=== PATIENT | female | born 1960 ===

== ENCOUNTER 2024-06-24 17:38 | Inpatient (IN) | payer MEDICAID ==
[~2024-06-24] VITALS: Ht 167.6 cm; Wt 89.4 kg
[2024-06-24] MEDS ORDERED: CEFTRIAXONE /D5W 50ML IVPB **ER PYXIS IV ONE (18:54)
[2024-06-24] MEDS ORDERED: VANCOMYCIN IV 200 ML ONE (18:55)
[2024-06-24] MEDS: CEFTRIAXONE 2 G in IV DEXTROSE 5% 100 ML IV ONE (19:05)
[2024-06-24] MEDS: IV NORMAL SALINE 1000 ML BAG IV ONE (19:05)
[2024-06-24 19:27] LABS: BASOPHILS % (AUTO) 0.3 % (0.0-2.0); EOSINOPHILS # (AUTO) 0.1 K/uL (0.0-0.7); EOSINOPHILS % (AUTO) 0.6 % (0.0-7.0); HEMATOCRIT 36.2 % (31.2-41.9); HEMOGLOBIN 11.9 g/dL (10.9-14.3); LYMPHOCYTES # (AUTO) 1.4 K/uL (0.8-4.8); LYMPHOCYTES % (AUTO) 10.8 % (20.5-51.5); MEAN CORPUSCULAR HEMOGLOBIN 28.2 uug (24.7-32.8); MEAN CORPUSCULAR HGB CONC 33 g/dL (32.3-35.6); MONOCYTES # (AUTO) 1.4 K/uL (0.1-1.30); MONOCYTES % (AUTO) 10.8 % (0.0-11.0); NEUTROPHILS # (AUTO) 10.1 K/uL (1.8-8.9); NEUTROPHILS % (AUTO) 77.5 % (38.5-71.5); PLATELET COUNT (AUTO) 157 K/uL (179-408); RED BLOOD CELL COUNT(AUTO) 4.21 MIL/uL (3.63-4.92); RED CELL DISTRIBUTION WIDTH 19.6 % (12.3-17.7)
[2024-06-24 19:28] LABS: CALCIUM 7.5 mg/dL (8.5-10.1); CARBON DIOXIDE 21 mmol/L (21-32); CHLORIDE 107 mmol/L (98-107); CREATININE 1.8 mg/dL (0.6-1.3); GLUCOSE 138 mg/dL (74-106); POTASSIUM 3.8 mmol/L (3.5-5.1); SODIUM SERUM 142 mmol/L (136-145)
[2024-06-24 19:29] LABS: DIFFERENTIAL COMMENT 1
[2024-06-24 19:31] LABS: AMMONIA < 10 umol/L (11-32); ETHANOL < 3 MG/DL (0-10); UREA NITROGEN, BLOOD 111 mg/dL (7-18)
[2024-06-24 19:42] LABS: *BILIRUBIN,URIN NEGATIVE (NEGATIVE); *BLOOD, URINE NEGATIVE (NEGATIVE); *CLARITY,URINE CLEAR (CLEAR); *COLOR,URINE YELLOW (YELLOW); *KETONES,URINE NEGATIVE (NEGATIVE); *PROTEIN,URINE NEGATIVE (NEGATIVE); LEUKOCYTE ESTERASE ,URINE NEGATIVE (NEGATIVE); NITRITE, URINE NEGATIVE (NEGATIVE); PH,URINE 6.5 (5.0-8.0); UGLUCOSE NEGATIVE (NEGATIVE)
[2024-06-24 19:43] LABS: ACETAMINOPHEN < 2.0 ug/mL (10-30); ALANINE AMINOTRANSFERASE 23 U/L (14-59); ALKALINE PHOSPHATASE 45 U/L (50-136); ASPARTATE AMINOTRANSFERASE 42 U/L (15-37); BILIRUBIN,DIRECT 0.5 mg/dL (0.0-0.2); TOTAL PROTEIN, SERUM 5.8 g/dL (6.4-8.2)
[2024-06-24 19:57] LABS: *AMPHETAMINE, URINE NEGATIVE (NEGATIVE); *BARBITURATE, URINE NEGATIVE (NEGATIVE); *BENZODIAZEPINE, URINE NEGATIVE (NEGATIVE); *CANNABINOID, URINE POSITIVE (NEGATIVE); *COCCAINE, URINE NEGATIVE (NEGATIVE); *OPIATE, URINE NEGATIVE (NEGATIVE); *PHENCYCLIDINE SCREEN,URINE NEGATIVE (NEGATIVE); FENTANYL, URINE NEGATIVE (NEGATIVE)
[2024-06-24] MEDS: VANCOMYCIN IV 1,000 MG in IV DEXTROSE 5% 250 ML IV ONE (20:00)
[2024-06-24 20:20] LABS: RBC,URINE 0-3 /HPF (0-3); WBC,URINE 0-3 /HPF (0-3)
[2024-06-24 20:21] LABS: BACTERIA,URINE FEW /HPF (NONE SEEN); SQUAMOUS EPITHELIAL CELL,UR FEW /HPF (NONE SEEN)
[2024-06-24] MEDS ORDERED: MAGNESIUM HYDROXIDE 30 ML LIQUID UDC PO PRN (23:30)
[2024-06-24] MEDS ORDERED: ACETAMINOPHEN 325 MG TABLET PO PRN (23:30)
[2024-06-25] VITALS (8 sets, daily range): BP systolic 106–153; BP diastolic 70–80; TEMP 97.6–98.4; O2SAT 96–99
[2024-06-25] MEDS: ASPIRIN 81 MG TAB.CHEW PO ONE (00:30)
[2024-06-25] MEDS: IV D5 1/2 NS 1000 ML 1,000 ML IV PRN (04:26)
[2024-06-25 04:46] LABS: *BILIRUBIN,URIN NEGATIVE (NEGATIVE); *BLOOD, URINE 2+ (NEGATIVE); *CLARITY,URINE CLEAR (CLEAR); *COLOR,URINE YELLOW (YELLOW); *KETONES,URINE NEGATIVE (NEGATIVE); *PROTEIN,URINE NEGATIVE (NEGATIVE); *UROBILINOGEN,URINE 0.2 E.U./dl (NORMAL); LEUKOCYTE ESTERASE ,URINE NEGATIVE (NEGATIVE); NITRITE, URINE NEGATIVE (NEGATIVE); PH,URINE 5.5 (5.0-8.0); UGLUCOSE NEGATIVE (NEGATIVE)
[2024-06-25 04:57] LABS: *AMPHETAMINE, URINE NEGATIVE (NEGATIVE); *BARBITURATE, URINE NEGATIVE (NEGATIVE); *BENZODIAZEPINE, URINE NEGATIVE (NEGATIVE); *CANNABINOID, URINE NEGATIVE (NEGATIVE); *COCCAINE, URINE NEGATIVE (NEGATIVE); *OPIATE, URINE NEGATIVE (NEGATIVE); *PHENCYCLIDINE SCREEN,URINE NEGATIVE (NEGATIVE); FENTANYL, URINE NEGATIVE (NEGATIVE)
[2024-06-25 05:05] LABS: WBC,URINE 0-3 /HPF (0-3)
[2024-06-25 05:06] LABS: BACTERIA,URINE FEW /HPF (NONE SEEN); MUCUS,URINE FEW /LPF (0-FEW); SQUAMOUS EPITHELIAL CELL,UR FEW /HPF (NONE SEEN)
[2024-06-25 07:49] LABS: BASOPHILS % (AUTO) 0.1 % (0.0-2.0); EOSINOPHILS # (AUTO) 0.1 K/uL (0.0-0.7); EOSINOPHILS % (AUTO) 0.6 % (0.0-7.0); HEMATOCRIT 36.6 % (31.2-41.9); HEMOGLOBIN 12.1 g/dL (10.9-14.3); LYMPHOCYTES # (AUTO) 0.9 K/uL (0.8-4.8); LYMPHOCYTES % (AUTO) 7.1 % (20.5-51.5); MEAN CORPUSCULAR HEMOGLOBIN 28.4 uug (24.7-32.8); MEAN CORPUSCULAR HGB CONC 33 g/dL (32.3-35.6); MEAN CORPUSCULAR VOLUME 85.6 fL (75.5-95.3); MONOCYTES % (AUTO) 8.3 % (0.0-11.0); NEUTROPHILS # (AUTO) 10.6 K/uL (1.8-8.9); NEUTROPHILS % (AUTO) 83.9 % (38.5-71.5); PLATELET COUNT (AUTO) 168 K/uL (179-408); RED BLOOD CELL COUNT(AUTO) 4.28 MIL/uL (3.63-4.92); RED CELL DISTRIBUTION WIDTH 19.8 % (12.3-17.7); WHITE BLOOD COUNT (AUTO) 12.6 K/uL (3.8-11.8)
[2024-06-25 07:59] LABS: DIFFERENTIAL COMMENT 1
[2024-06-25 08:03] LABS: CALCIUM 8.2 mg/dL (8.5-10.1); CREATININE 1.4 mg/dL (0.6-1.3); MAGNESIUM 2.6 mg/dL (1.8-2.4); PHOSPHOROUS 3.4 mg/dL (2.5-4.9)
[2024-06-25 08:09] LABS: POTASSIUM 3.3 mmol/L (3.5-5.1)
[2024-06-25] MEDS: PANTOPRAZOLE SODIUM 40 MG VIAL IV SCH (08:53)
[2024-06-25] MEDS: CLOPIDOGREL 75 MG TABLET PO SCH (08:53)
[2024-06-25] MEDS ORDERED: CEFTRIAXONE 1 G in IV DEXTROSE 5% 50 ML IV SCH (09:00)
[2024-06-25] MEDS ORDERED: POTASSIUM CHLORIDE 20 MEQ TAB.PRT.SR PO ONE (09:30)
[2024-06-25 10:00] LABS: THYROID STIMULATING HORMONE 1.879 mIU/mL (0.358-3.740)
[2024-06-25] MEDS ORDERED: POTASSIUM CHLORIDE 50 ML IV SCH (10:00)
[2024-06-25] MEDS: MEDIHONEY= THERAHONEY 1.5 OZ TUBE TOP SCH (11:21)
[2024-06-25] MEDS: POTASSIUM CHLORIDE 50 ML IV SCH (11:21)
[2024-06-25] MEDS ORDERED: METF-440 PO (11:39)
[2024-06-25] MEDS ORDERED: RISP1TAB97 PO (11:39)
[2024-06-25] MEDS ORDERED: HYDR25TA4 PO (11:39)
[2024-06-25] MEDS ORDERED: ASPI81TA31 PO (11:39)
[2024-06-25] MEDS ORDERED: CARV6.252 PO (11:39)
[2024-06-25] MEDS ORDERED: AMLO-212 PO (11:39)
[2024-06-25] MEDS ORDERED: CLOP75TA15 PO (11:39)
[2024-06-25] MEDS ORDERED: ATOR40TA PO (11:39)
[2024-06-25] MEDS ORDERED: LOSA50TA39 PO (11:39)
[2024-06-25] MEDS ORDERED: CLOPIDOGREL 75 MG TABLET PO SCH (13:45)
[2024-06-25] MEDS ORDERED: ASPIRIN EC 81 MG TABLET.DR PO SCH (14:00)
[2024-06-25] MEDS: ASPIRIN EC 81 MG TABLET.DR PO SCH (14:00)
[2024-06-25] MEDS ORDERED: SWABABLE VALVE TRANSFER SET EA MC ONE (14:21)
[2024-06-25] MEDS ORDERED: IOHEXOL 350 100 ML INFUS..BTL ONE (14:21)
[2024-06-25] MEDS ORDERED: IV NORMAL SALINE 250 ML IV ONE (14:21)
[2024-06-25] MEDS: DEXAMETHASONE SOD PHOSPHATE 4 MG INJ IV SCH (16:45)
[2024-06-25] MEDS: ENOXAPARIN SODIUM 40 MG/0.4 ML DISP.SYRIN SQ SCH (16:48)
[2024-06-25] MEDS: CEFTRIAXONE 1 G in IV DEXTROSE 5% 50 ML IV SCH (17:55)
[2024-06-25] MEDS: REMDESIVIR (CHARGED) 200 MG in IV NORMAL SALINE 210 ML IV ONE (17:55)
[2024-06-25] MEDS ORDERED: ATORVASTATIN 40 MG TABLET PO SCH (21:00)
[2024-06-25] MEDS ORDERED: MUPIROCIN 2% OINT 22 GM TUBE ONE (21:44)
[2024-06-25] MEDS: MUPIROCIN 2% OINT 22 GM TUBE NS SCH (22:00)
[2024-06-26] VITALS (22 sets, daily range): BP systolic 105–145; BP diastolic 62–84; TEMP 96.4–98.4; O2SAT 96–100
[2024-06-26] MEDS ORDERED: MAGNESIUM HYDROXIDE 30 ML LIQUID UDC NG PRN (01:00)
[2024-06-26 07:38] LABS: BASOPHILS % (AUTO) 0.1 % (0.0-2.0); HEMATOCRIT 35.4 % (31.2-41.9); HEMOGLOBIN 11.9 g/dL (10.9-14.3); LYMPHOCYTES # (AUTO) 0.6 K/uL (0.8-4.8); MEAN CORPUSCULAR HEMOGLOBIN 28.7 uug (24.7-32.8); MEAN CORPUSCULAR HGB CONC 34 g/dL (32.3-35.6); MEAN CORPUSCULAR VOLUME 85.6 fL (75.5-95.3); MONOCYTES # (AUTO) 0.7 K/uL (0.1-1.30); MONOCYTES % (AUTO) 4.9 % (0.0-11.0); NEUTROPHILS # (AUTO) 13.6 K/uL (1.8-8.9); PLATELET COUNT (AUTO) 189 K/uL (179-408); RED BLOOD CELL COUNT(AUTO) 4.14 MIL/uL (3.63-4.92); RED CELL DISTRIBUTION WIDTH 20.8 % (12.3-17.7); WHITE BLOOD COUNT (AUTO) 14.9 K/uL (3.8-11.8)
[2024-06-26 07:43] LABS: DIFFERENTIAL COMMENT 1
[2024-06-26 08:01] LABS: ALBUMIN 1.9 g/dL (3.4-5.0); BILIRUBIN,TOTAL 0.4 mg/dL (0.2-1.0); CALCIUM 8.2 mg/dL (8.5-10.1); CREATININE 1.1 mg/dL (0.6-1.3); MAGNESIUM 2.2 mg/dL (1.8-2.4); PHOSPHOROUS 2.1 mg/dL (2.5-4.9); TOTAL PROTEIN, SERUM 6.2 g/dL (6.4-8.2); VANCOMYCIN,RANDOM 12.6 ug/mL (20.0-30.0)
[2024-06-26 08:15] LABS: POTASSIUM 2.7 mmol/L (3.5-5.1)
[2024-06-26] MEDS: CLOPIDOGREL 75 MG TABLET NG SCH (09:00)
[2024-06-26] MEDS ORDERED: SWABABLE VALVE TRANSFER SET EA MC ONE (09:30)
[2024-06-26] MEDS ORDERED: IOHEXOL 350 100 ML INFUS..BTL ONE (09:30)
[2024-06-26] MEDS ORDERED: IV NORMAL SALINE 250 ML IV ONE (09:31)
[2024-06-26] MEDS: VANCOMYCIN HCL 750 MG in IV DEXTROSE 5% 250 ML IV SCH (10:42)
[2024-06-26] MEDS: POTASSIUM CHLORIDE 50 ML IV SCH (12:14)
[2024-06-26 13:15] LABS: PRE ALBUMIN 17.2 MG/DL (18.0-35.7)
[2024-06-26] MEDS: POTASSIUM PHOSPHATE MM 15 MMOL in IV NORMAL SALINE 250 ML IV ONE (13:28)
[2024-06-26] MEDS: ENOXAPARIN SODIUM 40 MG/0.4 ML DISP.SYRIN SQ SCH (15:21)
[2024-06-26] MEDS: GLUCERNA 1.2 1000ML LIQUID GT PRN (15:46)
[2024-06-26] MEDS ORDERED: REMDESIVIR (CHARGED) 100 MG in IV NORMAL SALINE 100 ML IV SCH (18:00)
[2024-06-26] MEDS: ATORVASTATIN 40 MG TABLET NG SCH (21:55)
[2024-06-27] VITALS (9 sets, daily range): BP systolic 106–130; BP diastolic 69–76; TEMP 95.9–98; O2SAT 93–100
[2024-06-27 09:05] LABS: CALCIUM 8.4 mg/dL (8.5-10.1); CREATININE 1.1 mg/dL (0.6-1.3); POTASSIUM 4.5 mmol/L (3.5-5.1)
[2024-06-27] MEDS: ACETAMINOPHEN 650 MG/20.3 ML LIQUID UDC NG PRN (20:46)
[2024-06-28] VITALS (7 sets, daily range): BP systolic 113–123; BP diastolic 70–88; TEMP 97.3–98.7; O2SAT 93–100
[2024-06-28 01:06] LABS: PTH, INTACT 86 pg/mL (15-65)
[2024-06-28 07:04] LABS: BASOPHILS % (AUTO) 0.1 % (0.0-2.0); HEMOGLOBIN 12.2 g/dL (10.9-14.3); LYMPHOCYTES % (AUTO) 4.7 % (20.5-51.5); MEAN CORPUSCULAR HEMOGLOBIN 28.3 uug (24.7-32.8); MEAN CORPUSCULAR HGB CONC 33 g/dL (32.3-35.6); MEAN CORPUSCULAR VOLUME 85.6 fL (75.5-95.3); MONOCYTES # (AUTO) 0.9 K/uL (0.1-1.30); MONOCYTES % (AUTO) 4.5 % (0.0-11.0); NEUTROPHILS # (AUTO) 18.3 K/uL (1.8-8.9); NEUTROPHILS % (AUTO) 90.7 % (38.5-71.5); PLATELET COUNT (AUTO) 232 K/uL (179-408); RED BLOOD CELL COUNT(AUTO) 4.32 MIL/uL (3.63-4.92); RED CELL DISTRIBUTION WIDTH 22.3 % (12.3-17.7); WHITE BLOOD COUNT (AUTO) 20.2 K/uL (3.8-11.8)
[2024-06-28 07:14] LABS: DIFFERENTIAL COMMENT 1
[2024-06-28 07:24] LABS: CALCIUM 7.9 mg/dL (8.5-10.1); CREATININE 1.2 mg/dL (0.6-1.3); MAGNESIUM 1.7 mg/dL (1.8-2.4); PHOSPHOROUS 2.7 mg/dL (2.5-4.9); POTASSIUM 3.3 mmol/L (3.5-5.1)
[2024-06-28] MEDS: CARVEDILOL 3.125 MG TABLET PO SCH (11:07)
[2024-06-28] MEDS: MAGNESIUM OXIDE 400 MG TABLET NG ONE (12:46)
[2024-06-28] MEDS: POTASSIUM CHLORIDE 20 MEQ POWDER PACKET NG ONE (12:46)
[2024-06-28] MEDS ORDERED: DEXTROSE 50% 50 ML DISP.SYRIN IV PRN (19:00)
[2024-06-28] MEDS: BLOOD SUGAR DIAGNOSTIC 1 EACH STRIP VI SCH (22:09)
[2024-06-28] MEDS: INSULIN REGULAR, HUMAN 1000 UNIT/10 ML VIAL SQ PRN (22:27)
[2024-06-29] VITALS (7 sets, daily range): BP systolic 91–143; BP diastolic 56–83; TEMP 96.5–98.1; O2SAT 95–100
[2024-06-29] MEDS: ONDANSETRON 4 MG/2 ML VIAL IV PRN (05:32)
[2024-06-29 07:02] LABS: BASOPHILS # (AUTO) 0.1 K/UL (0.0-0.2); BASOPHILS % (AUTO) 0.3 % (0.0-2.0); EOSINOPHILS % (AUTO) 0.1 % (0.0-7.0); HEMATOCRIT 36.3 % (31.2-41.9); HEMOGLOBIN 12.2 g/dL (10.9-14.3); LYMPHOCYTES # (AUTO) 1.5 K/uL (0.8-4.8); LYMPHOCYTES % (AUTO) 5.5 % (20.5-51.5); MEAN CORPUSCULAR HEMOGLOBIN 28.7 uug (24.7-32.8); MEAN CORPUSCULAR HGB CONC 34 g/dL (32.3-35.6); MEAN CORPUSCULAR VOLUME 85.5 fL (75.5-95.3); MONOCYTES % (AUTO) 3.7 % (0.0-11.0); NEUTROPHILS # (AUTO) 24.5 K/uL (1.8-8.9); NEUTROPHILS % (AUTO) 90.4 % (38.5-71.5); PLATELET COUNT (AUTO) 228 K/uL (179-408); RED BLOOD CELL COUNT(AUTO) 4.25 MIL/uL (3.63-4.92); RED CELL DISTRIBUTION WIDTH 22.4 % (12.3-17.7); WHITE BLOOD COUNT (AUTO) 27.1 K/uL (3.8-11.8)
[2024-06-29 07:12] LABS: DIFFERENTIAL COMMENT 1
[2024-06-29 07:29] LABS: ALANINE AMINOTRANSFERASE 39 U/L (14-59); ALBUMIN 1.6 g/dL (3.4-5.0); ALKALINE PHOSPHATASE 101 U/L (50-136); ASPARTATE AMINOTRANSFERASE 41 U/L (15-37); BILIRUBIN,TOTAL 0.5 mg/dL (0.2-1.0); CALCIUM 8.3 mg/dL (8.5-10.1); CARBON DIOXIDE 19 mmol/L (21-32); CHLORIDE 103 mmol/L (98-107); CREATINE KINASE, TOTAL 303 U/L (26-192); CREATININE 1.2 mg/dL (0.6-1.3); GLUCOSE 110 mg/dL (74-106); MAGNESIUM 2.1 mg/dL (1.8-2.4); PHOSPHOROUS 2.9 mg/dL (2.5-4.9); SODIUM SERUM 134 mmol/L (136-145); TOTAL PROTEIN, SERUM 5.4 g/dL (6.4-8.2); UREA NITROGEN, BLOOD 52 mg/dL (7-18)
[2024-06-29 07:35] LABS: LIPASE > 375 U/L (16-77); VANCOMYCIN,RANDOM 30.8 ug/mL (20.0-30.0)
[2024-06-29 07:36] LABS: POTASSIUM 4.4 mmol/L (3.5-5.1)
[2024-06-29] MEDS: ARGININE/GLUTAMINE/CALCIUM BMB 1 EACH POWD.PACK NG SCH (09:48)
[2024-06-29 12:07] LABS: A/G RATIO 0.6 (0.7-1.7); ALBUMIN 2.1 g/dL (2.9-4.4); ALPHA-1-GLOBULIN 0.3 g/dL (0.0-0.4); ALPHA-2-GLOBULIN 1.3 g/dL (0.4-1.0); BETA GLOBULIN 1.1 g/dL (0.7-1.3); GAMMA GLOBULIN 0.7 g/dL (0.4-1.8); GLOBULIN, TOTAL 3.4 g/dL (2.2-3.9); M-SPIKE Not Observed g/dL (Not Observed); PROTEIN, TOTAL 5.5 g/dL (6.0-8.5)
[2024-06-29] MEDS: IV D5/ 0.9% NACL 1,000 ML IV PRN (20:53)
[2024-06-30 04:00] VITALS: BP 158/89; TEMP 98.3; O2SAT 95
[2024-06-30 04:11] VITALS: O2SAT 96
[2024-06-30 07:35] LABS: HEMATOCRIT 34.7 % (31.2-41.9); HEMOGLOBIN 11.6 g/dL (10.9-14.3); LYMPHOCYTES # (AUTO) 0.9 K/uL (0.8-4.8); LYMPHOCYTES % (AUTO) 3.9 % (20.5-51.5); MEAN CORPUSCULAR HEMOGLOBIN 28.4 uug (24.7-32.8); MEAN CORPUSCULAR HGB CONC 33 g/dL (32.3-35.6); MEAN CORPUSCULAR VOLUME 85.1 fL (75.5-95.3); MONOCYTES # (AUTO) 0.6 K/uL (0.1-1.30); MONOCYTES % (AUTO) 2.5 % (0.0-11.0); NEUTROPHILS # (AUTO) 20.6 K/uL (1.8-8.9); NEUTROPHILS % (AUTO) 93.6 % (38.5-71.5); PLATELET COUNT (AUTO) 248 K/uL (179-408); RED BLOOD CELL COUNT(AUTO) 4.07 MIL/uL (3.63-4.92); RED CELL DISTRIBUTION WIDTH 22.9 % (12.3-17.7)
[2024-06-30 07:48] LABS: VANCOMYCIN,RANDOM 26.5 ug/mL (20.0-30.0)
[2024-06-30 08:18] LABS: DIFFERENTIAL COMMENT 1
[2024-06-30 09:04] LABS: CALCIUM 8.8 mg/dL (8.5-10.1); CREATININE 1.2 mg/dL (0.6-1.3); MAGNESIUM 2.2 mg/dL (1.8-2.4); PHOSPHOROUS 3.3 mg/dL (2.5-4.9); POTASSIUM 4.5 mmol/L (3.5-5.1)
[2024-06-30 11:46] VITALS: BP 154/83; TEMP 97.8; O2SAT 98
[2024-06-30 14:04] VITALS: O2SAT 96
[2024-06-30 20:00] VITALS: BP 152/88; TEMP 97.9; O2SAT 97
[2024-07-01] VITALS (7 sets, daily range): BP systolic 138–160; BP diastolic 84–92; TEMP 97.7–98.4; O2SAT 95–99
[2024-07-01] MEDS ORDERED: PIPERACILLIN SODIUM/TAZOBACTAM 3.375 G in IV DEXTROSE 5% 50 ML IV SCH (07:15)
[2024-07-01] MEDS: PIPERACILLIN SODIUM/TAZOBACTAM 3.375 G in IV DEXTROSE 5% 100 ML IV SCH ×2 (09:00→16:24)
[2024-07-01 11:06] LABS: ALBUMIN 1.5 g/dL (3.4-5.0); BILIRUBIN,DIRECT 0.1 mg/dL (0.0-0.2); BILIRUBIN,TOTAL 0.4 mg/dL (0.2-1.0); TOTAL PROTEIN, SERUM 5.2 g/dL (6.4-8.2)
[2024-07-01 12:23] LABS: BASOPHILS % (AUTO) 0.1 % (0.0-2.0); DIFFERENTIAL COMMENT 0; HEMATOCRIT 31.7 % (31.2-41.9); HEMOGLOBIN 10.5 g/dL (10.9-14.3); LYMPHOCYTES # (AUTO) 0.7 K/uL (0.8-4.8); LYMPHOCYTES % (AUTO) 3.5 % (20.5-51.5); MEAN CORPUSCULAR HEMOGLOBIN 28.6 uug (24.7-32.8); MEAN CORPUSCULAR HGB CONC 33 g/dL (32.3-35.6); MEAN CORPUSCULAR VOLUME 86.5 fL (75.5-95.3); MONOCYTES # (AUTO) 0.4 K/uL (0.1-1.30); MONOCYTES % (AUTO) 2.3 % (0.0-11.0); NEUTROPHILS # (AUTO) 17.7 K/uL (1.8-8.9); NEUTROPHILS % (AUTO) 94.1 % (38.5-71.5); PLATELET COUNT (AUTO) 274 K/uL (179-408); RED BLOOD CELL COUNT(AUTO) 3.67 MIL/uL (3.63-4.92); RED CELL DISTRIBUTION WIDTH 23.7 % (12.3-17.7); WHITE BLOOD COUNT (AUTO) 18.8 K/uL (3.8-11.8)
[2024-07-02] VITALS (8 sets, daily range): BP systolic 100–155; BP diastolic 50–83; TEMP 94.4–98.4; O2SAT 98–100
[2024-07-02 13:05] LABS: BASOPHILS % (AUTO) 0.1 % (0.0-2.0); DIFFERENTIAL COMMENT 0; EOSINOPHILS % (AUTO) 0.3 % (0.0-7.0); HEMATOCRIT 33.2 % (31.2-41.9); HEMOGLOBIN 11.2 g/dL (10.9-14.3); LYMPHOCYTES # (AUTO) 1.3 K/uL (0.8-4.8); LYMPHOCYTES % (AUTO) 7.2 % (20.5-51.5); MEAN CORPUSCULAR HEMOGLOBIN 28.9 uug (24.7-32.8); MEAN CORPUSCULAR HGB CONC 34 g/dL (32.3-35.6); MEAN CORPUSCULAR VOLUME 85.9 fL (75.5-95.3); MONOCYTES # (AUTO) 0.8 K/uL (0.1-1.30); MONOCYTES % (AUTO) 4.8 % (0.0-11.0); NEUTROPHILS # (AUTO) 15.5 K/uL (1.8-8.9); NEUTROPHILS % (AUTO) 87.6 % (38.5-71.5); PLATELET COUNT (AUTO) 282 K/uL (179-408); RED BLOOD CELL COUNT(AUTO) 3.87 MIL/uL (3.63-4.92); RED CELL DISTRIBUTION WIDTH 23.5 % (12.3-17.7); WHITE BLOOD COUNT (AUTO) 17.7 K/uL (3.8-11.8)
[2024-07-02 13:15] LABS: ALBUMIN 1.5 g/dL (3.4-5.0); BILIRUBIN,DIRECT 0.2 mg/dL (0.0-0.2); BILIRUBIN,TOTAL 0.5 mg/dL (0.2-1.0); CALCIUM 8.4 mg/dL (8.5-10.1); MAGNESIUM 1.7 mg/dL (1.8-2.4); PHOSPHOROUS 2.3 mg/dL (2.5-4.9); POTASSIUM 3.7 mmol/L (3.5-5.1); TOTAL PROTEIN, SERUM 5.1 g/dL (6.4-8.2)
[2024-07-02 14:02] LABS: BAND % (MANUAL) 5 % (0-10); LYMPHOCYTES % (MANUAL) 6 % (20-40); METAMYELOCYTES % 2 % (0-1); MONOCYTES % (MANUAL) 5 % (2-10); NEUTROPHILS % (MANUAL) 82 % (42-75)
[2024-07-02 14:05] LABS: PLATELET ESTIMATE ADEQUATE
[2024-07-02 14:11] LABS: ANISOCYTOSIS 3+
[2024-07-02] MEDS: NEUTRA PHOS PACKET GT ONE (16:24)
[2024-07-03] VITALS (8 sets, daily range): BP systolic 102–145; BP diastolic 65–77; TEMP 95.4–98.4; O2SAT 98–100
[2024-07-03] MEDS: PANTOPRAZOLE ORAL SUSPENSION 40 MG SUSPDR.PKT GT SCH (08:32)
[2024-07-04] VITALS (7 sets, daily range): BP systolic 123–144; BP diastolic 66–72; TEMP 97.5–98.5; O2SAT 96–100
[2024-07-04 09:31] LABS: CALCIUM 8.1 mg/dL (8.5-10.1); CREATININE 0.8 mg/dL (0.6-1.3); PHOSPHOROUS 2.6 mg/dL (2.5-4.9); POTASSIUM 3.1 mmol/L (3.5-5.1)
[2024-07-04 09:34] LABS: AMYLASE 796 U/L (25-115)
[2024-07-04 09:47] LABS: LIPASE > 375 U/L (16-77)
[2024-07-04] MEDS: POTASSIUM CHLORIDE 20 MEQ POWDER PACKET GT ONE (12:57)
[2024-07-05] MEDS ORDERED: PIPERACILLIN SODIUM/TAZO 3.375 GM VIAL ONE (00:07)
[2024-07-05 05:48] VITALS: BP 126/67; TEMP 97.9; O2SAT 100
[2024-07-05 06:45] LABS: BASOPHILS % (AUTO) 0.2 % (0.0-2.0); EOSINOPHILS # (AUTO) 0.1 K/uL (0.0-0.7); EOSINOPHILS % (AUTO) 1.2 % (0.0-7.0); HEMATOCRIT 25.7 % (31.2-41.9); HEMOGLOBIN 8.9 g/dL (10.9-14.3); MEAN CORPUSCULAR HEMOGLOBIN 29.9 uug (24.7-32.8); MEAN CORPUSCULAR HGB CONC 35 g/dL (32.3-35.6); MEAN CORPUSCULAR VOLUME 86.3 fL (75.5-95.3); MONOCYTES # (AUTO) 0.5 K/uL (0.1-1.30); MONOCYTES % (AUTO) 3.9 % (0.0-11.0); NEUTROPHILS # (AUTO) 10.4 K/uL (1.8-8.9); NEUTROPHILS % (AUTO) 86.7 % (38.5-71.5); PLATELET COUNT (AUTO) 177 K/uL (179-408); RED BLOOD CELL COUNT(AUTO) 2.98 MIL/uL (3.63-4.92); RED CELL DISTRIBUTION WIDTH 23.4 % (12.3-17.7)
[2024-07-05 07:05] LABS: DIFFERENTIAL COMMENT 1
[2024-07-05 07:41] LABS: BILIRUBIN,TOTAL 0.5 mg/dL (0.2-1.0); CALCIUM 7.5 mg/dL (8.5-10.1); CREATININE 0.7 mg/dL (0.6-1.3); MAGNESIUM 1.2 mg/dL (1.8-2.4); POTASSIUM 3.3 mmol/L (3.5-5.1)
[2024-07-05 08:52] LABS: BAND % (MANUAL) 1 % (0-10); EOSINOPHILS % (MANUAL) 1 % (0-8); LYMPHOCYTES % (MANUAL) 7 % (20-40); MONOCYTES % (MANUAL) 4 % (2-10); NEUTROPHILS % (MANUAL) 86 % (42-75)
[2024-07-05 08:53] LABS: ANISOCYTOSIS 2+; PLATELET ESTIMATE DECREASED
[2024-07-05] MEDS: POTASSIUM PHOSPHATE MM 15 MMOL in IV NORMAL SALINE 250 ML IV ONE (09:09)
[2024-07-05] MEDS: MAGNESIUM SULFATE/D5W 100 ML IV SCH (09:09)
[2024-07-05] MEDS: ALBUMIN HUMAN 25% 100 ML IV ONE (09:57)
[2024-07-05] MEDS: FUROSEMIDE 20 MG/2 ML VIAL IV ONE (11:08)
[2024-07-05 11:15] VITALS: BP 139/80; TEMP 98.5; O2SAT 100
[2024-07-05] MEDS ORDERED: NEUTRA PHOS PACKET PO ONE (15:15)
[2024-07-05] MEDS: NEUTRA PHOS PACKET GT ONE (15:31)
[2024-07-05 15:47] VITALS: BP 143/81; TEMP 97.4; O2SAT 97
[2024-07-06 06:21] VITALS: BP 144/72; TEMP 98.2
[2024-07-06 06:56] LABS: BASOPHILS % (AUTO) 0.1 % (0.0-2.0); EOSINOPHILS # (AUTO) 0.2 K/uL (0.0-0.7); EOSINOPHILS % (AUTO) 1.7 % (0.0-7.0); HEMATOCRIT 25.6 % (31.2-41.9); HEMOGLOBIN 8.9 g/dL (10.9-14.3); LYMPHOCYTES # (AUTO) 1.1 K/uL (0.8-4.8); LYMPHOCYTES % (AUTO) 9.8 % (20.5-51.5); MEAN CORPUSCULAR HEMOGLOBIN 29.7 uug (24.7-32.8); MEAN CORPUSCULAR HGB CONC 35 g/dL (32.3-35.6); MEAN CORPUSCULAR VOLUME 85.4 fL (75.5-95.3); MONOCYTES # (AUTO) 0.5 K/uL (0.1-1.30); MONOCYTES % (AUTO) 4.6 % (0.0-11.0); NEUTROPHILS # (AUTO) 9.5 K/uL (1.8-8.9); NEUTROPHILS % (AUTO) 83.8 % (38.5-71.5); PLATELET COUNT (AUTO) 184 K/uL (179-408); WHITE BLOOD COUNT (AUTO) 11.3 K/uL (3.8-11.8)
[2024-07-06 07:18] LABS: BILIRUBIN,DIRECT 0.1 mg/dL (0.0-0.2); BILIRUBIN,TOTAL 0.7 mg/dL (0.2-1.0); CALCIUM 7.5 mg/dL (8.5-10.1); CREATININE 0.7 mg/dL (0.6-1.3); PHOSPHOROUS 2.6 mg/dL (2.5-4.9); POTASSIUM 3.1 mmol/L (3.5-5.1); TOTAL PROTEIN, SERUM 4.5 g/dL (6.4-8.2)
[2024-07-06 07:52] LABS: DIFFERENTIAL COMMENT 1
[2024-07-06 08:10] VITALS: BP 174/93; TEMP 97.7; O2SAT 97
[2024-07-06 08:33] LABS: ALBUMIN 1.4 g/dL (3.4-5.0)
[2024-07-06 09:00] VITALS: O2SAT 98
[2024-07-06 12:00] VITALS: BP 160/86; TEMP 98.7; O2SAT 97
[2024-07-06] MEDS: POTASSIUM CHLORIDE 20 MEQ TAB.PRT.SR PO ONE (13:52)
[2024-07-06] MEDS: GLUCERNA 1.2 1000ML LIQUID GT PRN (14:36)
[2024-07-06 16:00] VITALS: BP 145/82; TEMP 98.7; O2SAT 97
[2024-07-06 19:40] VITALS: BP 151/82; TEMP 97.8; O2SAT 93
[2024-07-07 05:57] VITALS: BP 136/84; TEMP 98.3; O2SAT 94
[2024-07-07 08:25] LABS: BASOPHILS # (AUTO) 0.1 K/UL (0.0-0.2); BASOPHILS % (AUTO) 0.4 % (0.0-2.0); EOSINOPHILS # (AUTO) 0.1 K/uL (0.0-0.7); EOSINOPHILS % (AUTO) 0.9 % (0.0-7.0); HEMATOCRIT 27.4 % (31.2-41.9); HEMOGLOBIN 9.2 g/dL (10.9-14.3); LYMPHOCYTES # (AUTO) 0.9 K/uL (0.8-4.8); LYMPHOCYTES % (AUTO) 6.2 % (20.5-51.5); MEAN CORPUSCULAR HEMOGLOBIN 28.9 uug (24.7-32.8); MEAN CORPUSCULAR HGB CONC 34 g/dL (32.3-35.6); MEAN CORPUSCULAR VOLUME 85.8 fL (75.5-95.3); MONOCYTES # (AUTO) 0.6 K/uL (0.1-1.30); MONOCYTES % (AUTO) 3.6 % (0.0-11.0); NEUTROPHILS # (AUTO) 13.6 K/uL (1.8-8.9); NEUTROPHILS % (AUTO) 88.9 % (38.5-71.5); PLATELET COUNT (AUTO) 166 K/uL (179-408); RED BLOOD CELL COUNT(AUTO) 3.19 MIL/uL (3.63-4.92); RED CELL DISTRIBUTION WIDTH 23.3 % (12.3-17.7); WHITE BLOOD COUNT (AUTO) 15.3 K/uL (3.8-11.8)
[2024-07-07 08:30] LABS: DIFFERENTIAL COMMENT 1
[2024-07-07 08:46] LABS: ALANINE AMINOTRANSFERASE 56 U/L (14-59); ALKALINE PHOSPHATASE 176 U/L (50-136); ASPARTATE AMINOTRANSFERASE 41 U/L (15-37); BILIRUBIN,TOTAL 0.3 mg/dL (0.2-1.0); CALCIUM 7.9 mg/dL (8.5-10.1); CARBON DIOXIDE 23 mmol/L (21-32); CHLORIDE 112 mmol/L (98-107); CREATININE 0.7 mg/dL (0.6-1.3); GLUCOSE 151 mg/dL (74-106); POTASSIUM 3.5 mmol/L (3.5-5.1); SODIUM SERUM 144 mmol/L (136-145); TOTAL PROTEIN, SERUM 4.5 g/dL (6.4-8.2); UREA NITROGEN, BLOOD 6 mg/dL (7-18)
[2024-07-07 08:49] LABS: ALBUMIN 1.3 g/dL (3.4-5.0)
[2024-07-07 09:54] LABS: MAGNESIUM 1.7 mg/dL (1.8-2.4); PHOSPHOROUS 1.9 mg/dL (2.5-4.9)
[2024-07-07 12:00] VITALS: BP 136/75; TEMP 98.4; O2SAT 98
[2024-07-07 16:00] VITALS: BP 133/77; TEMP 98.1; O2SAT 98
[2024-07-07] MEDS: NEUTRA PHOS PACKET GT ONE (17:37)
[2024-07-07 19:00] VITALS: BP 150/81; TEMP 97.9; O2SAT 96
[2024-07-07 20:50] VITALS: BP 140/77
[2024-07-07 22:30] LABS: LIPASE > 375 U/L (16-77)
[2024-07-08 06:00] VITALS: TEMP 98.1; O2SAT 95
[2024-07-08 06:44] LABS: BASOPHILS % (AUTO) 0.3 % (0.0-2.0); EOSINOPHILS # (AUTO) 0.1 K/uL (0.0-0.7); EOSINOPHILS % (AUTO) 0.9 % (0.0-7.0); HEMATOCRIT 27.9 % (31.2-41.9); HEMOGLOBIN 9.5 g/dL (10.9-14.3); LYMPHOCYTES # (AUTO) 0.9 K/uL (0.8-4.8); LYMPHOCYTES % (AUTO) 6.6 % (20.5-51.5); MEAN CORPUSCULAR HEMOGLOBIN 29.2 uug (24.7-32.8); MEAN CORPUSCULAR HGB CONC 34 g/dL (32.3-35.6); MEAN CORPUSCULAR VOLUME 85.5 fL (75.5-95.3); MONOCYTES # (AUTO) 0.8 K/uL (0.1-1.30); MONOCYTES % (AUTO) 5.6 % (0.0-11.0); NEUTROPHILS # (AUTO) 12.3 K/uL (1.8-8.9); NEUTROPHILS % (AUTO) 86.6 % (38.5-71.5); PLATELET COUNT (AUTO) 158 K/uL (179-408); RED BLOOD CELL COUNT(AUTO) 3.26 MIL/uL (3.63-4.92); RED CELL DISTRIBUTION WIDTH 23.1 % (12.3-17.7); WHITE BLOOD COUNT (AUTO) 14.2 K/uL (3.8-11.8)
[2024-07-08 07:03] VITALS: BP 122/80
[2024-07-08 07:11] LABS: BILIRUBIN,DIRECT 0.1 mg/dL (0.0-0.2); BILIRUBIN,TOTAL 0.4 mg/dL (0.2-1.0); CALCIUM 7.6 mg/dL (8.5-10.1); CREATININE 0.7 mg/dL (0.6-1.3); MAGNESIUM 1.5 mg/dL (1.8-2.4); PHOSPHOROUS 1.8 mg/dL (2.5-4.9); POTASSIUM 3.2 mmol/L (3.5-5.1); TOTAL PROTEIN, SERUM 4.7 g/dL (6.4-8.2)
[2024-07-08 07:13] LABS: ALBUMIN 1.3 g/dL (3.4-5.0); C-REACTIVE PROTEIN 9.11 mg/dL (0.00-0.30)
[2024-07-08] MEDS: POTASSIUM CHLORIDE 20 MEQ POWDER PACKET NG ONE (09:51)
[2024-07-08] MEDS: MAGNESIUM OXIDE 400 MG TABLET GT ONE (09:51)
[2024-07-08] MEDS ORDERED: POTASSIUM CHLORIDE 20 MEQ TAB.PRT.SR PO ONE (10:00)
[2024-07-08 11:30] VITALS: BP 121/76; TEMP 98.4; O2SAT 94
[2024-07-08] MEDS: REMEDY ESSENTIAL ZINC PASTE 113 GM TOP SCH (11:56)
[2024-07-08 15:04] VITALS: BP 159/84; TEMP 98.7; O2SAT 93
[2024-07-08] MEDS: NEUTRA PHOS PACKET PO ONE (16:30)
[2024-07-08] MEDS: IV LACTATED RINGERS SOLUTION 1,000 ML IV SCH (18:23)
[2024-07-08 19:57] VITALS: BP 127/77; TEMP 98.1; O2SAT 96
[2024-07-08 20:28] VITALS: O2SAT 94
[2024-07-09 05:44] VITALS: BP 133/78; TEMP 97.9; O2SAT 99
[2024-07-09 07:19] LABS: BASOPHILS % (AUTO) 0.4 % (0.0-2.0); EOSINOPHILS # (AUTO) 0.2 K/uL (0.0-0.7); EOSINOPHILS % (AUTO) 1.3 % (0.0-7.0); HEMATOCRIT 27.3 % (31.2-41.9); HEMOGLOBIN 9.4 g/dL (10.9-14.3); LYMPHOCYTES # (AUTO) 1.1 K/uL (0.8-4.8); LYMPHOCYTES % (AUTO) 8.6 % (20.5-51.5); MEAN CORPUSCULAR HEMOGLOBIN 29.4 uug (24.7-32.8); MEAN CORPUSCULAR HGB CONC 34 g/dL (32.3-35.6); MEAN CORPUSCULAR VOLUME 85.7 fL (75.5-95.3); MONOCYTES # (AUTO) 0.9 K/uL (0.1-1.30); MONOCYTES % (AUTO) 7.4 % (0.0-11.0); NEUTROPHILS # (AUTO) 10.2 K/uL (1.8-8.9); NEUTROPHILS % (AUTO) 82.3 % (38.5-71.5); PLATELET COUNT (AUTO) 145 K/uL (179-408); RED BLOOD CELL COUNT(AUTO) 3.19 MIL/uL (3.63-4.92); RED CELL DISTRIBUTION WIDTH 23.1 % (12.3-17.7); WHITE BLOOD COUNT (AUTO) 12.4 K/uL (3.8-11.8)
[2024-07-09 07:28] LABS: DIFFERENTIAL COMMENT 1
[2024-07-09 08:44] LABS: ALANINE AMINOTRANSFERASE 40 U/L (14-59); ALKALINE PHOSPHATASE 169 U/L (50-136); ASPARTATE AMINOTRANSFERASE 38 U/L (15-37); BILIRUBIN,DIRECT 0.1 mg/dL (0.0-0.2); BILIRUBIN,TOTAL 0.4 mg/dL (0.2-1.0); CALCIUM 7.7 mg/dL (8.5-10.1); CARBON DIOXIDE 25 mmol/L (21-32); CHLORIDE 110 mmol/L (98-107); CREATININE 0.6 mg/dL (0.6-1.3); GLUCOSE 114 mg/dL (74-106); POTASSIUM 3.2 mmol/L (3.5-5.1); SODIUM SERUM 142 mmol/L (136-145); TOTAL PROTEIN, SERUM 4.4 g/dL (6.4-8.2); UREA NITROGEN, BLOOD 17 mg/dL (7-18)
[2024-07-09 09:04] LABS: LIPASE > 375 U/L (16-77)
[2024-07-09 09:09] LABS: ALBUMIN 1.1 g/dL (3.4-5.0)
[2024-07-09] MEDS: MAGNESIUM SULFATE/D5W 100 ML IV SCH (09:24)
[2024-07-09 11:31] VITALS: BP 157/82; TEMP 97.8; O2SAT 99
[2024-07-09] MEDS ORDERED: TPN/PPN PER PHARMACY IV PRN (13:00)
[2024-07-09] MEDS: ALBUMIN HUMAN 25% 100 ML IV SCH (13:53)
[2024-07-09] MEDS: TPN BAG # 1 IV SCH (16:00)
[2024-07-09 16:56] VITALS: BP 155/74; TEMP 97.5; O2SAT 95
[2024-07-09 20:00] VITALS: BP 159/86; TEMP 98.1; O2SAT 96
[2024-07-10] VITALS (8 sets, daily range): BP systolic 166–178; BP diastolic 78–89; TEMP 97.3–98.2; O2SAT 82–97
[2024-07-10] MEDS ORDERED: ALBUMIN HUMAN 25% 50 ML ONE (01:44)
[2024-07-10] MEDS ORDERED: ALBUMIN HUMAN 25% 100 ML ONE (01:59)
[2024-07-10] MEDS: TPN IV SCH (05:09)
[2024-07-10 07:17] LABS: MAGNESIUM 1.8 mg/dL (1.8-2.4); PHOSPHOROUS 2.1 mg/dL (2.5-4.9)
[2024-07-10 07:27] LABS: ALBUMIN 2.8 g/dL (3.4-5.0); BILIRUBIN,TOTAL 0.8 mg/dL (0.2-1.0); CALCIUM 7.7 mg/dL (8.5-10.1); CREATININE 0.6 mg/dL (0.6-1.3); POTASSIUM 2.9 mmol/L (3.5-5.1)
[2024-07-10 09:12] LABS: BASOPHILS % (AUTO) 0.2 % (0.0-2.0); DIFFERENTIAL COMMENT 0; EOSINOPHILS # (AUTO) 0.1 K/uL (0.0-0.7); EOSINOPHILS % (AUTO) 1.1 % (0.0-7.0); LYMPHOCYTES # (AUTO) 0.9 K/uL (0.8-4.8); LYMPHOCYTES % (AUTO) 7.8 % (20.5-51.5); MEAN CORPUSCULAR HEMOGLOBIN 29.4 uug (24.7-32.8); MEAN CORPUSCULAR HGB CONC 34 g/dL (32.3-35.6); MEAN CORPUSCULAR VOLUME 85.8 fL (75.5-95.3); MONOCYTES # (AUTO) 0.9 K/uL (0.1-1.30); MONOCYTES % (AUTO) 7.9 % (0.0-11.0); NEUTROPHILS # (AUTO) 9.6 K/uL (1.8-8.9); PLATELET COUNT (AUTO) 131 K/uL (179-408); RED CELL DISTRIBUTION WIDTH 22.7 % (12.3-17.7); WHITE BLOOD COUNT (AUTO) 11.5 K/uL (3.8-11.8)
[2024-07-10 09:16] LABS: RED BLOOD CELL COUNT(AUTO) 2.32 MIL/uL (3.63-4.92)
[2024-07-10 09:18] LABS: HEMOGLOBIN 6.8 g/dL (10.9-14.3)
[2024-07-10 09:19] LABS: HEMATOCRIT 19.9 % (31.2-41.9)
[2024-07-10 11:53] LABS: EOSINOPHILS % (MANUAL) 1 % (0-8); LYMPHOCYTES % (MANUAL) 8 % (20-40); MONOCYTES % (MANUAL) 8 % (2-10); NEUTROPHILS % (MANUAL) 83 % (42-75); PLATELET ESTIMATE DECREASED
[2024-07-10] MEDS: POTASSIUM PHOSPHATE MM 15 MMOL in IV NORMAL SALINE 250 ML IV ONE (12:07)
[2024-07-10] MEDS: TPN BAG #3 IV SCH (15:26)
[2024-07-10 16:55] LABS: HEMOGLOBIN 7.9 g/dL (10.9-14.3)
[2024-07-10] MEDS: hydrALAZINE HCL 20 MG/1 ML VIAL IV PRN (21:18)
[2024-07-11] MEDS: TPN BAG #4 IV SCH (00:56)
[2024-07-11 05:36] VITALS: BP 158/80; TEMP 98; O2SAT 100
[2024-07-11 06:30] LABS: BASOPHILS % (AUTO) 0.4 % (0.0-2.0); EOSINOPHILS # (AUTO) 0.1 K/uL (0.0-0.7); EOSINOPHILS % (AUTO) 1.5 % (0.0-7.0); HEMOGLOBIN 8.5 g/dL (10.9-14.3); LYMPHOCYTES # (AUTO) 1.1 K/uL (0.8-4.8); LYMPHOCYTES % (AUTO) 11.6 % (20.5-51.5); MEAN CORPUSCULAR HEMOGLOBIN 30.9 uug (24.7-32.8); MEAN CORPUSCULAR HGB CONC 36 g/dL (32.3-35.6); MEAN CORPUSCULAR VOLUME 87.1 fL (75.5-95.3); MONOCYTES % (AUTO) 10.7 % (0.0-11.0); NEUTROPHILS # (AUTO) 7.1 K/uL (1.8-8.9); NEUTROPHILS % (AUTO) 75.8 % (38.5-71.5); PLATELET COUNT (AUTO) 125 K/uL (179-408); RED BLOOD CELL COUNT(AUTO) 2.75 MIL/uL (3.63-4.92); RED CELL DISTRIBUTION WIDTH 20.8 % (12.3-17.7); WHITE BLOOD COUNT (AUTO) 9.4 K/uL (3.8-11.8)
[2024-07-11 06:32] LABS: HEMATOCRIT 24.2 % (31.2-41.9); HEMOGLOBIN 8.5 g/dL (10.9-14.3)
[2024-07-11 07:07] LABS: ALBUMIN 2.4 g/dL (3.4-5.0); BILIRUBIN,TOTAL 0.9 mg/dL (0.2-1.0); CALCIUM 7.8 mg/dL (8.5-10.1); CREATININE 0.7 mg/dL (0.6-1.3); MAGNESIUM 1.8 mg/dL (1.8-2.4); PHOSPHOROUS 2.8 mg/dL (2.5-4.9); TOTAL PROTEIN, SERUM 4.9 g/dL (6.4-8.2)
[2024-07-11 07:14] LABS: POTASSIUM 2.8 mmol/L (3.5-5.1)
[2024-07-11 07:22] LABS: DIFFERENTIAL COMMENT 1
[2024-07-11] MEDS: POTASSIUM CHLORIDE 50 ML IV SCH (08:45)
[2024-07-11] MEDS: LOSARTAN POTASSIUM 25 MG TABLET PO SCH (08:45)
[2024-07-11 08:48] LABS: ANISOCYTOSIS 2+; BAND % (MANUAL) 1 % (0-10); LYMPHOCYTES % (MANUAL) 15 % (20-40); METAMYELOCYTES % 1 % (0-1); MONOCYTES % (MANUAL) 11 % (2-10); MYELOCYTES % 1 % (0-0); NEUTROPHILS % (MANUAL) 71 % (42-75); PLATELET ESTIMATE DECREASED
[2024-07-11] MEDS: TPN BAG #5 IV SCH (11:33)
[2024-07-11 11:55] VITALS: BP 189/92; TEMP 98; O2SAT 94
[2024-07-11] MEDS: POTASSIUM PHOSPHATE MM 15 MMOL in IV NORMAL SALINE 250 ML IV ONE (12:47)
[2024-07-11 15:47] VITALS: BP 147/67; TEMP 98.5; O2SAT 95; O2SAT 97
[2024-07-11 16:40] VITALS: O2SAT 96
[2024-07-11] MEDS: VANCOMYCIN IV 1,000 MG in IV DEXTROSE 5% 250 ML IV ONE (19:32)
[2024-07-11 21:00] VITALS: TEMP 98.5
[2024-07-11] MEDS: TPN BAG #6 IV SCH (21:16)
[2024-07-11] MEDS ORDERED: TPN BAG #6 IV SCH ×2 (21:30)
[2024-07-11 23:00] VITALS: O2SAT 97
[2024-07-12] VITALS (7 sets, daily range): BP systolic 132–169; BP diastolic 75–99; TEMP 97.1–98.8; O2SAT 95–96
[2024-07-12 06:40] LABS: BASOPHILS % (AUTO) 0.2 % (0.0-2.0); EOSINOPHILS # (AUTO) 0.1 K/uL (0.0-0.7); EOSINOPHILS % (AUTO) 0.5 % (0.0-7.0); HEMATOCRIT 21.3 % (31.2-41.9); LYMPHOCYTES # (AUTO) 0.9 K/uL (0.8-4.8); MEAN CORPUSCULAR HEMOGLOBIN 29.9 uug (24.7-32.8); MEAN CORPUSCULAR HGB CONC 34 g/dL (32.3-35.6); MONOCYTES # (AUTO) 0.9 K/uL (0.1-1.30); MONOCYTES % (AUTO) 6.6 % (0.0-11.0); NEUTROPHILS # (AUTO) 12.4 K/uL (1.8-8.9); NEUTROPHILS % (AUTO) 86.7 % (38.5-71.5); PLATELET COUNT (AUTO) 109 K/uL (179-408); RED CELL DISTRIBUTION WIDTH 22.4 % (12.3-17.7); WHITE BLOOD COUNT (AUTO) 14.3 K/uL (3.8-11.8)
[2024-07-12 06:51] LABS: DIFFERENTIAL COMMENT 1; HEMOGLOBIN 7.1 g/dL (10.9-14.3); RED BLOOD CELL COUNT(AUTO) 2.39 MIL/uL (3.63-4.92)
[2024-07-12 07:10] LABS: ALBUMIN 1.6 g/dL (3.4-5.0); BILIRUBIN,TOTAL 0.5 mg/dL (0.2-1.0); CALCIUM 7.2 mg/dL (8.5-10.1); CREATININE 0.6 mg/dL (0.6-1.3)
[2024-07-12] MEDS ORDERED: TPN BAG #7 IV SCH (07:30)
[2024-07-12] MEDS: CLOPIDOGREL 75 MG TABLET NG SCH (09:00)
[2024-07-12] MEDS: POTASSIUM CHLORIDE 50 ML IV SCH (12:03)
[2024-07-12] MEDS: TPN BAG #6 IV ONE (12:36)
[2024-07-12] MEDS: VANCOMYCIN IV 1,000 MG in IV DEXTROSE 5% 250 ML IV ONE (14:35)
[2024-07-12] MEDS: TPN BAG #7 IV SCH (17:47)
[2024-07-12 22:33] LABS: HEMOGLOBIN 9.9 g/dL (10.9-14.3)
[2024-07-13 06:44] VITALS: BP 140/90; TEMP 97.5; O2SAT 99
[2024-07-13 07:13] LABS: BASOPHILS # (AUTO) 0.1 K/UL (0.0-0.2); BASOPHILS % (AUTO) 0.4 % (0.0-2.0); EOSINOPHILS # (AUTO) 0.1 K/uL (0.0-0.7); EOSINOPHILS % (AUTO) 1.1 % (0.0-7.0); HEMATOCRIT 28.5 % (31.2-41.9); HEMOGLOBIN 9.8 g/dL (10.9-14.3); LYMPHOCYTES # (AUTO) 0.7 K/uL (0.8-4.8); LYMPHOCYTES % (AUTO) 5.2 % (20.5-51.5); MEAN CORPUSCULAR HEMOGLOBIN 30.3 uug (24.7-32.8); MEAN CORPUSCULAR HGB CONC 34 g/dL (32.3-35.6); MEAN CORPUSCULAR VOLUME 88.2 fL (75.5-95.3); MONOCYTES % (AUTO) 7.2 % (0.0-11.0); NEUTROPHILS % (AUTO) 86.1 % (38.5-71.5); PLATELET COUNT (AUTO) 116 K/uL (179-408); RED BLOOD CELL COUNT(AUTO) 3.23 MIL/uL (3.63-4.92); RED CELL DISTRIBUTION WIDTH 21.7 % (12.3-17.7); WHITE BLOOD COUNT (AUTO) 13.9 K/uL (3.8-11.8)
[2024-07-13 07:14] LABS: DIFFERENTIAL COMMENT 1
[2024-07-13 07:21] LABS: ALBUMIN 1.7 g/dL (3.4-5.0); BILIRUBIN,TOTAL 0.6 mg/dL (0.2-1.0); CALCIUM 8.4 mg/dL (8.5-10.1); CREATININE 0.5 mg/dL (0.6-1.3); POTASSIUM 3.6 mmol/L (3.5-5.1); TOTAL PROTEIN, SERUM 4.7 g/dL (6.4-8.2)
[2024-07-13 07:24] LABS: BILIRUBIN,DIRECT 0.1 mg/dL (0.0-0.2); MAGNESIUM 1.5 mg/dL (1.8-2.4); PHOSPHOROUS 2.1 mg/dL (2.5-4.9); VANCOMYCIN,RANDOM 17.5 ug/mL (20.0-30.0)
[2024-07-13 11:30] VITALS: BP 145/80; TEMP 98.5; O2SAT 98
[2024-07-13] MEDS: TPN BAG # 8 IV SCH (13:30)
[2024-07-13] MEDS: VANCOMYCIN IV 1,000 MG in IV DEXTROSE 5% 250 ML IV ONE (15:09)
[2024-07-13 16:00] VITALS: BP 137/70; TEMP 98.2; O2SAT 99
[2024-07-13 16:25] VITALS: O2SAT 98
[2024-07-13 19:20] VITALS: BP 133/85; TEMP 98.7; O2SAT 97
[2024-07-14 00:11] VITALS: O2SAT 98
[2024-07-14 05:55] VITALS: BP 115/75; TEMP 97.9; O2SAT 99
[2024-07-14 11:43] VITALS: BP 167/89; TEMP 98.3; O2SAT 100
[2024-07-14] MEDS: TPN BAG # 9 IV SCH (12:05)
[2024-07-14 14:37] VITALS: O2SAT 100
[2024-07-14 15:51] VITALS: BP 143/70; TEMP 97.9; O2SAT 97
[2024-07-14 15:56] LABS: BASOPHILS # (AUTO) 0.1 K/UL (0.0-0.2); BASOPHILS % (AUTO) 0.5 % (0.0-2.0); EOSINOPHILS # (AUTO) 0.1 K/uL (0.0-0.7); EOSINOPHILS % (AUTO) 0.8 % (0.0-7.0); HEMATOCRIT 29.5 % (31.2-41.9); LYMPHOCYTES # (AUTO) 0.7 K/uL (0.8-4.8); LYMPHOCYTES % (AUTO) 6.8 % (20.5-51.5); MEAN CORPUSCULAR HEMOGLOBIN 29.8 uug (24.7-32.8); MEAN CORPUSCULAR HGB CONC 34 g/dL (32.3-35.6); MEAN CORPUSCULAR VOLUME 88.1 fL (75.5-95.3); MONOCYTES # (AUTO) 0.6 K/uL (0.1-1.30); MONOCYTES % (AUTO) 6.1 % (0.0-11.0); NEUTROPHILS # (AUTO) 8.9 K/uL (1.8-8.9); NEUTROPHILS % (AUTO) 85.8 % (38.5-71.5); PLATELET COUNT (AUTO) 110 K/uL (179-408); RED BLOOD CELL COUNT(AUTO) 3.35 MIL/uL (3.63-4.92); RED CELL DISTRIBUTION WIDTH 21.7 % (12.3-17.7); WHITE BLOOD COUNT (AUTO) 10.3 K/uL (3.8-11.8)
[2024-07-14 16:02] LABS: DIFFERENTIAL COMMENT 1
[2024-07-14 16:10] LABS: ALBUMIN 1.5 g/dL (3.4-5.0); BILIRUBIN,DIRECT 0.2 mg/dL (0.0-0.2); BILIRUBIN,TOTAL 0.4 mg/dL (0.2-1.0); CALCIUM 7.8 mg/dL (8.5-10.1); CREATININE 0.6 mg/dL (0.6-1.3); MAGNESIUM 1.2 mg/dL (1.8-2.4); PHOSPHOROUS 2.6 mg/dL (2.5-4.9); TOTAL PROTEIN, SERUM 4.7 g/dL (6.4-8.2); VANCOMYCIN,RANDOM 17.1 ug/mL (20.0-30.0)
[2024-07-14] MEDS: PIPERACILLIN SODIUM/TAZOBACTAM 3.375 G in IV DEXTROSE 5% 50 ML IV SCH (17:05)
[2024-07-14] MEDS: POTASSIUM PHOSPHATE MM 15 MMOL in IV NORMAL SALINE 250 ML IV ONE (18:05)
[2024-07-14] MEDS ORDERED: VANCOMYCIN IV 1,000 MG in IV DEXTROSE 5% 250 ML IV ONE (18:30)
[2024-07-14] MEDS: MAGNESIUM SULFATE/D5W 100 ML IV SCH (18:37)
[2024-07-14 20:00] VITALS: BP 158/88; TEMP 98.2; O2SAT 98
[2024-07-15 00:07] VITALS: O2SAT 100
[2024-07-15 05:59] VITALS: BP 156/88; TEMP 98; O2SAT 98
[2024-07-15 06:39] LABS: BASOPHILS % (AUTO) 0.2 % (0.0-2.0); EOSINOPHILS # (AUTO) 0.1 K/uL (0.0-0.7); EOSINOPHILS % (AUTO) 1.5 % (0.0-7.0); HEMATOCRIT 27.6 % (31.2-41.9); HEMOGLOBIN 9.6 g/dL (10.9-14.3); LYMPHOCYTES # (AUTO) 0.6 K/uL (0.8-4.8); LYMPHOCYTES % (AUTO) 8.2 % (20.5-51.5); MEAN CORPUSCULAR HEMOGLOBIN 30.5 uug (24.7-32.8); MEAN CORPUSCULAR HGB CONC 35 g/dL (32.3-35.6); MEAN CORPUSCULAR VOLUME 87.5 fL (75.5-95.3); MONOCYTES % (AUTO) 13.1 % (0.0-11.0); NEUTROPHILS # (AUTO) 5.8 K/uL (1.8-8.9); PLATELET COUNT (AUTO) 109 K/uL (179-408); RED BLOOD CELL COUNT(AUTO) 3.16 MIL/uL (3.63-4.92); RED CELL DISTRIBUTION WIDTH 20.7 % (12.3-17.7); WHITE BLOOD COUNT (AUTO) 7.6 K/uL (3.8-11.8)
[2024-07-15 06:59] LABS: BILIRUBIN,TOTAL 0.5 mg/dL (0.2-1.0); CALCIUM 7.8 mg/dL (8.5-10.1); CREATININE 0.5 mg/dL (0.6-1.3); TOTAL PROTEIN, SERUM 4.5 g/dL (6.4-8.2)
[2024-07-15 07:02] LABS: DIFFERENTIAL COMMENT 1
[2024-07-15 07:19] LABS: BILIRUBIN,DIRECT 0.2 mg/dL (0.0-0.2); PHOSPHOROUS 2.1 mg/dL (2.5-4.9); VANCOMYCIN,RANDOM 12.8 ug/mL (20.0-30.0)
[2024-07-15 07:37] LABS: ALBUMIN 1.4 g/dL (3.4-5.0)
[2024-07-15 07:56] LABS: POTASSIUM 2.5 mmol/L (3.5-5.1)
[2024-07-15] MEDS ORDERED: TPN BAG # 10 IV SCH (08:00)
[2024-07-15] MEDS ORDERED: TPN BAG #9 IV SCH (08:00)
[2024-07-15 08:25] VITALS: BP 146/64; TEMP 98.1; O2SAT 98
[2024-07-15] MEDS: TPN BAG #11 IV SCH (08:44)
[2024-07-15] MEDS ORDERED: POTASSIUM PHOSPHATE MM 15 MMOL in IV NORMAL SALINE 250 ML IV ONE (08:45)
[2024-07-15] MEDS: POTASSIUM PHOSPHATE MM 15 MMOL in IV NORMAL SALINE 250 ML IV ONE ×2 (10:08→16:51)
[2024-07-15] MEDS: MAGNESIUM SULFATE/D5W 100 ML IV SCH (14:33)
[2024-07-15 16:56] VITALS: BP 149/72; TEMP 98.4; O2SAT 98
[2024-07-15 17:21] VITALS: BP 166/84; TEMP 98.2; O2SAT 98
[2024-07-15 20:00] VITALS: BP 111/69; TEMP 97.5; O2SAT 98
[2024-07-16] MEDS: TPN IV SCH (05:00)
[2024-07-16 06:00] VITALS: BP 136/67; TEMP 97.7; O2SAT 96
[2024-07-16 07:02] LABS: CREATININE 0.5 mg/dL (0.6-1.3); PHOSPHOROUS 1.6 mg/dL (2.5-4.9)
[2024-07-16 09:05] VITALS: O2SAT 99
[2024-07-16] MEDS: POTASSIUM CHLORIDE 50 ML IV SCH (09:26)
[2024-07-16] MEDS: MAGNESIUM SULFATE/D5W 100 ML IV SCH (09:47)
[2024-07-16 12:00] VITALS: BP 95/70; TEMP 97.5; O2SAT 99
[2024-07-16] MEDS: POTASSIUM PHOSPHATE MM 15 MMOL in IV NORMAL SALINE 250 ML IV ONE ×2 (12:12→18:13)
[2024-07-16 15:53] VITALS: BP 124/72; TEMP 96.8
[2024-07-16 20:00] VITALS: BP 155/75; TEMP 97.3; O2SAT 99
[2024-07-16 20:47] VITALS: O2SAT 99
[2024-07-17] VITALS (7 sets, daily range): BP systolic 111–186; BP diastolic 54–89; TEMP 97.9–99.3; O2SAT 95–99
[2024-07-17] MEDS ORDERED: TPN IV SCH (01:00)
[2024-07-17] MEDS: TPN IV SCH (01:31)
[2024-07-17 06:28] LABS: BASOPHILS # (AUTO) 0.1 K/UL (0.0-0.2); BASOPHILS % (AUTO) 0.9 % (0.0-2.0); EOSINOPHILS # (AUTO) 0.3 K/uL (0.0-0.7); EOSINOPHILS % (AUTO) 3.2 % (0.0-7.0); HEMATOCRIT 26.3 % (31.2-41.9); HEMOGLOBIN 8.9 g/dL (10.9-14.3); MEAN CORPUSCULAR HEMOGLOBIN 29.6 uug (24.7-32.8); MEAN CORPUSCULAR HGB CONC 34 g/dL (32.3-35.6); MEAN CORPUSCULAR VOLUME 87.2 fL (75.5-95.3); MONOCYTES # (AUTO) 1.2 K/uL (0.1-1.30); MONOCYTES % (AUTO) 14.5 % (0.0-11.0); NEUTROPHILS # (AUTO) 5.8 K/uL (1.8-8.9); NEUTROPHILS % (AUTO) 69.4 % (38.5-71.5); PLATELET COUNT (AUTO) 198 K/uL (179-408); RED BLOOD CELL COUNT(AUTO) 3.01 MIL/uL (3.63-4.92); RED CELL DISTRIBUTION WIDTH 21.4 % (12.3-17.7); WHITE BLOOD COUNT (AUTO) 8.4 K/uL (3.8-11.8)
[2024-07-17 06:32] LABS: DIFFERENTIAL COMMENT 1
[2024-07-17 06:54] LABS: CALCIUM 7.9 mg/dL (8.5-10.1); CARBON DIOXIDE 22 mmol/L (21-32); CHLORIDE 114 mmol/L (98-107); CREATININE 0.4 mg/dL (0.6-1.3); GLUCOSE 161 mg/dL (74-106); MAGNESIUM 1.7 mg/dL (1.8-2.4); NT-PRO BNP 33340 pg/mL (0-125); PHOSPHOROUS 2.7 mg/dL (2.5-4.9); POTASSIUM 3.7 mmol/L (3.5-5.1); SODIUM SERUM 143 mmol/L (136-145); UREA NITROGEN, BLOOD 31 mg/dL (7-18)
[2024-07-17] MEDS ORDERED: PROPOFOL 200 MG/20 ML BOTTLE ONE (07:30)
[2024-07-17] MEDS ORDERED: PANTOPRAZOLE SODIUM 40 MG VIAL IV SCH (09:00)
[2024-07-17] MEDS: MAGNESIUM SULFATE/D5W 100 ML IV SCH (09:32)
[2024-07-17] MEDS: FUROSEMIDE 40 MG/4 ML VIAL IV ONE (11:10)
[2024-07-17] MEDS: ALBUMIN HUMAN 25% 100 ML IV ONE (11:45)
[2024-07-17] MEDS: CARVEDILOL 3.125 MG TABLET GT ONE (11:45)
[2024-07-17] MEDS ORDERED: [UNRECOGNIZED DRUG - REMARK] XX PRN (18:00)
[2024-07-17] MEDS: PANTOPRAZOLE SODIUM 40 MG VIAL IV SCH (20:59)
[2024-07-17] MEDS: ATORVASTATIN 20 MG TABLET GT SCH (20:59)
[2024-07-17] MEDS: CARVEDILOL 6.25 MG TABLET GT SCH (21:29)
[2024-07-18 05:55] VITALS: BP 110/52; TEMP 99; O2SAT 95
[2024-07-18 06:59] LABS: BASOPHILS % (AUTO) 0.3 % (0.0-2.0); EOSINOPHILS # (AUTO) 0.3 K/uL (0.0-0.7); EOSINOPHILS % (AUTO) 2.1 % (0.0-7.0); HEMATOCRIT 26.7 % (31.2-41.9); HEMOGLOBIN 9.1 g/dL (10.9-14.3); LYMPHOCYTES % (AUTO) 7.8 % (20.5-51.5); MEAN CORPUSCULAR HEMOGLOBIN 29.9 uug (24.7-32.8); MEAN CORPUSCULAR HGB CONC 34 g/dL (32.3-35.6); MONOCYTES # (AUTO) 1.2 K/uL (0.1-1.30); MONOCYTES % (AUTO) 9.9 % (0.0-11.0); NEUTROPHILS # (AUTO) 9.8 K/uL (1.8-8.9); NEUTROPHILS % (AUTO) 79.9 % (38.5-71.5); PLATELET COUNT (AUTO) 259 K/uL (179-408); RED BLOOD CELL COUNT(AUTO) 3.04 MIL/uL (3.63-4.92); RED CELL DISTRIBUTION WIDTH 21.1 % (12.3-17.7); WHITE BLOOD COUNT (AUTO) 12.3 K/uL (3.8-11.8)
[2024-07-18 07:05] LABS: DIFFERENTIAL COMMENT 1
[2024-07-18 07:19] LABS: ALBUMIN 1.6 g/dL (3.4-5.0); BILIRUBIN,TOTAL 0.7 mg/dL (0.2-1.0); CALCIUM 8.1 mg/dL (8.5-10.1); CREATININE 0.5 mg/dL (0.6-1.3); MAGNESIUM 2.1 mg/dL (1.8-2.4); PHOSPHOROUS 2.7 mg/dL (2.5-4.9); TOTAL PROTEIN, SERUM 4.8 g/dL (6.4-8.2)
[2024-07-18 07:23] LABS: POTASSIUM 3.7 mmol/L (3.5-5.1)
[2024-07-18] MEDS: GLUCERNA 1.2 1000ML LIQUID GT PRN (07:55)
[2024-07-18] MEDS: ASPIRIN EC 81 MG TABLET.DR PO SCH (09:00)
[2024-07-18] MEDS: CLOPIDOGREL 75 MG TABLET GT SCH (09:05)
[2024-07-18] MEDS: POTASSIUM CHLORIDE 20 MEQ POWDER PACKET GT ONE (09:18)
[2024-07-18 12:00] VITALS: BP 143/73; TEMP 98.1; O2SAT 99
[2024-07-18 14:24] VITALS: O2SAT 97
[2024-07-18 15:48] VITALS: BP 116/56; TEMP 98.3; O2SAT 99
[2024-07-18 20:00] VITALS: BP 130/70; TEMP 97.9; O2SAT 99
[2024-07-18 20:50] VITALS: O2SAT 98
[2024-07-19 06:00] VITALS: BP 110/68; TEMP 98.9; O2SAT 93; O2SAT 98
[2024-07-19 07:24] LABS: BASOPHILS # (AUTO) 0.1 K/UL (0.0-0.2); BASOPHILS % (AUTO) 0.4 % (0.0-2.0); EOSINOPHILS # (AUTO) 0.3 K/uL (0.0-0.7); EOSINOPHILS % (AUTO) 2.2 % (0.0-7.0); LYMPHOCYTES # (AUTO) 0.9 K/uL (0.8-4.8); LYMPHOCYTES % (AUTO) 5.6 % (20.5-51.5); MEAN CORPUSCULAR HEMOGLOBIN 29.7 uug (24.7-32.8); MEAN CORPUSCULAR HGB CONC 34 g/dL (32.3-35.6); MEAN CORPUSCULAR VOLUME 88.8 fL (75.5-95.3); MONOCYTES # (AUTO) 1.2 K/uL (0.1-1.30); NEUTROPHILS % (AUTO) 83.8 % (38.5-71.5); PLATELET COUNT (AUTO) 182 K/uL (179-408); RED BLOOD CELL COUNT(AUTO) 3.04 MIL/uL (3.63-4.92); WHITE BLOOD COUNT (AUTO) 15.5 K/uL (3.8-11.8)
[2024-07-19 07:29] LABS: DIFFERENTIAL COMMENT 1
[2024-07-19] MEDS: ASPIRIN 81 MG TAB.CHEW GT SCH (08:16)
[2024-07-19 08:29] LABS: CALCIUM 8.4 mg/dL (8.5-10.1); CREATININE 0.6 mg/dL (0.6-1.3); MAGNESIUM 2.1 mg/dL (1.8-2.4)
[2024-07-19 09:13] LABS: POTASSIUM 4.6 mmol/L (3.5-5.1)
[2024-07-19] MEDS ORDERED: GLUCERNA 1.2 1000ML LIQUID GT PRN (09:40)
[2024-07-19 09:56] LABS: *BILIRUBIN,URIN NEGATIVE (NEGATIVE); *CLARITY,URINE CLEAR (CLEAR); *COLOR,URINE YELLOW (YELLOW); *KETONES,URINE TRACE (NEGATIVE); *PROTEIN,URINE 2+ (NEGATIVE); *UROBILINOGEN,URINE 0.2 E.U./dl (NORMAL); LEUKOCYTE ESTERASE ,URINE NEGATIVE (NEGATIVE); NITRITE, URINE POSITIVE (NEGATIVE); PH,URINE 5.5 (5.0-8.0); UGLUCOSE NEGATIVE (NEGATIVE)
[2024-07-19 09:58] LABS: *BLOOD, URINE TRACE (NEGATIVE); WBC,URINE 0-3 /HPF (0-3)
[2024-07-19 09:59] LABS: BACTERIA,URINE MODERATE /HPF (NONE SEEN); SQUAMOUS EPITHELIAL CELL,UR MODERATE /HPF (NONE SEEN)
[2024-07-19 10:41] LABS: BAND % (MANUAL) 19 % (0-10); LYMPHOCYTES % (MANUAL) 7 % (20-40); MONOCYTES % (MANUAL) 6 % (2-10); NEUTROPHILS % (MANUAL) 68 % (42-75); PLATELET ESTIMATE ADEQUATE
[2024-07-19 10:42] LABS: ANISOCYTOSIS 2+
[2024-07-19 11:10] VITALS: BP 115/69; TEMP 98; O2SAT 98
[2024-07-19 13:50] VITALS: O2SAT 98
[2024-07-19] MEDS: GLUCERNA 1.2 1000ML LIQUID GT PRN (14:07)
[2024-07-19 16:00] VITALS: BP 167/91; TEMP 98; O2SAT 98
[2024-07-19] MEDS: PANTOPRAZOLE ORAL SUSPENSION 40 MG SUSPDR.PKT GT SCH (17:22)
[2024-07-19] MEDS: FUROSEMIDE 40 MG/4 ML VIAL IV ONE (18:50)
[2024-07-19 20:15] VITALS: BP 151/80; TEMP 99.6; O2SAT 98
[2024-07-19] MEDS: ALBUMIN HUMAN 25% 100 ML IV ONE (20:15)
[2024-07-20 04:25] VITALS: O2SAT 99
[2024-07-20 05:40] VITALS: BP 145/75; TEMP 98.1; O2SAT 99
[2024-07-20 06:40] LABS: BASOPHILS # (AUTO) 0.1 K/UL (0.0-0.2); BASOPHILS % (AUTO) 0.4 % (0.0-2.0); EOSINOPHILS # (AUTO) 0.1 K/uL (0.0-0.7); EOSINOPHILS % (AUTO) 0.6 % (0.0-7.0); HEMATOCRIT 28.1 % (31.2-41.9); HEMOGLOBIN 9.8 g/dL (10.9-14.3); LYMPHOCYTES % (AUTO) 4.8 % (20.5-51.5); MEAN CORPUSCULAR HEMOGLOBIN 30.8 uug (24.7-32.8); MEAN CORPUSCULAR HGB CONC 35 g/dL (32.3-35.6); MEAN CORPUSCULAR VOLUME 88.8 fL (75.5-95.3); MONOCYTES # (AUTO) 1.5 K/uL (0.1-1.30); MONOCYTES % (AUTO) 7.3 % (0.0-11.0); NEUTROPHILS # (AUTO) 18.4 K/uL (1.8-8.9); NEUTROPHILS % (AUTO) 86.9 % (38.5-71.5); PLATELET COUNT (AUTO) 418 K/uL (179-408); RED BLOOD CELL COUNT(AUTO) 3.17 MIL/uL (3.63-4.92); RED CELL DISTRIBUTION WIDTH 21.3 % (12.3-17.7); WHITE BLOOD COUNT (AUTO) 21.2 K/uL (3.8-11.8)
[2024-07-20 06:54] LABS: DIFFERENTIAL COMMENT 1
[2024-07-20 06:58] LABS: ALBUMIN 1.8 g/dL (3.4-5.0); BILIRUBIN,DIRECT 0.3 mg/dL (0.0-0.2); BILIRUBIN,TOTAL 0.6 mg/dL (0.2-1.0); CALCIUM 8.5 mg/dL (8.5-10.1); CREATININE 0.7 mg/dL (0.6-1.3); MAGNESIUM 1.9 mg/dL (1.8-2.4); PHOSPHOROUS 3.2 mg/dL (2.5-4.9); POTASSIUM 3.4 mmol/L (3.5-5.1); TOTAL PROTEIN, SERUM 5.1 g/dL (6.4-8.2)
[2024-07-20 08:30] VITALS: BP 173/83; TEMP 97.5; O2SAT 95
[2024-07-20] MEDS: ARGININE/GLUTAMINE/CALCIUM BMB 1 EACH POWD.PACK GT SCH (09:00)
[2024-07-20] MEDS: POTASSIUM CHLORIDE 20 MEQ POWDER PACKET GT ONE (12:21)
[2024-07-20 12:30] VITALS: BP 161/76; TEMP 97.3; O2SAT 97; O2SAT 98
[2024-07-20] MEDS ORDERED: IOHEXOL 300MG/ML 100 ML INFUS..BTL ONE (13:23)
[2024-07-20] MEDS ORDERED: SWABABLE VALVE TRANSFER SET EA MC ONE (13:23)
[2024-07-20] MEDS ORDERED: IV NORMAL SALINE 250 ML IV ONE (13:24)
[2024-07-20 16:03] VITALS: BP 141/75; TEMP 98.2; O2SAT 94
[2024-07-20 19:32] VITALS: BP 157/84; TEMP 99.3; O2SAT 98
[2024-07-20] MEDS ORDERED: MVI ADULT 10 ML VIAL=1 AMP 10 ML, THIAMINE HCL INJ 100 MG, FOLIC ACID 1 MG, MAGNESIUM S... IV PRN (21:15)
[2024-07-20] MEDS: IV D5/ 0.9% NACL 1,000 ML IV PRN (21:40)
[2024-07-21 00:22] VITALS: O2SAT 97
[2024-07-21 05:13] VITALS: BP 156/90; TEMP 98.6; O2SAT 97
[2024-07-21 06:20] LABS: BASOPHILS % (AUTO) 0.1 % (0.0-2.0); EOSINOPHILS # (AUTO) 0.2 K/uL (0.0-0.7); EOSINOPHILS % (AUTO) 0.7 % (0.0-7.0); HEMATOCRIT 27.5 % (31.2-41.9); HEMOGLOBIN 9.3 g/dL (10.9-14.3); LYMPHOCYTES # (AUTO) 0.8 K/uL (0.8-4.8); LYMPHOCYTES % (AUTO) 3.3 % (20.5-51.5); MEAN CORPUSCULAR HEMOGLOBIN 29.9 uug (24.7-32.8); MEAN CORPUSCULAR HGB CONC 34 g/dL (32.3-35.6); MEAN CORPUSCULAR VOLUME 88.4 fL (75.5-95.3); MONOCYTES % (AUTO) 4.1 % (0.0-11.0); NEUTROPHILS # (AUTO) 23.4 K/uL (1.8-8.9); NEUTROPHILS % (AUTO) 91.8 % (38.5-71.5); PLATELET COUNT (AUTO) 528 K/uL (179-408); RED BLOOD CELL COUNT(AUTO) 3.12 MIL/uL (3.63-4.92); RED CELL DISTRIBUTION WIDTH 20.8 % (12.3-17.7); WHITE BLOOD COUNT (AUTO) 25.5 K/uL (3.8-11.8)
[2024-07-21 06:26] LABS: CALCIUM 8.4 mg/dL (8.5-10.1); CREATININE 0.8 mg/dL (0.6-1.3); MAGNESIUM 1.8 mg/dL (1.8-2.4); POTASSIUM 3.4 mmol/L (3.5-5.1)
[2024-07-21] MEDS: NUTRISOURCE FIBER 4 GM PACKET GT SCH (09:00)
[2024-07-21] MEDS: POTASSIUM CHLORIDE 50 ML IV SCH (09:28)
[2024-07-21 12:00] VITALS: BP 139/76; TEMP 97.1; O2SAT 94
[2024-07-21] MEDS: IV D5 1/2 NS 1000 ML 1,000 ML IV PRN (14:21)
[2024-07-21 15:45] VITALS: O2SAT 95
[2024-07-21 20:00] VITALS: BP 134/67; TEMP 99.2; O2SAT 96
[2024-07-22 05:15] VITALS: BP 146/71; TEMP 97.1; O2SAT 95
[2024-07-22 06:49] LABS: BASOPHILS # (AUTO) 0.1 K/UL (0.0-0.2); BASOPHILS % (AUTO) 0.3 % (0.0-2.0); DIFFERENTIAL COMMENT 0; EOSINOPHILS # (AUTO) 0.6 K/uL (0.0-0.7); EOSINOPHILS % (AUTO) 2.1 % (0.0-7.0); HEMATOCRIT 29.9 % (31.2-41.9); HEMOGLOBIN 10.1 g/dL (10.9-14.3); LYMPHOCYTES # (AUTO) 1.2 K/uL (0.8-4.8); LYMPHOCYTES % (AUTO) 3.9 % (20.5-51.5); MEAN CORPUSCULAR HEMOGLOBIN 30.1 uug (24.7-32.8); MEAN CORPUSCULAR HGB CONC 34 g/dL (32.3-35.6); MEAN CORPUSCULAR VOLUME 88.8 fL (75.5-95.3); MONOCYTES # (AUTO) 1.6 K/uL (0.1-1.30); MONOCYTES % (AUTO) 5.2 % (0.0-11.0); NEUTROPHILS # (AUTO) 26.8 K/uL (1.8-8.9); NEUTROPHILS % (AUTO) 88.5 % (38.5-71.5); PLATELET COUNT (AUTO) 596 K/uL (179-408); RED BLOOD CELL COUNT(AUTO) 3.37 MIL/uL (3.63-4.92); RED CELL DISTRIBUTION WIDTH 21.2 % (12.3-17.7)
[2024-07-22 06:51] LABS: ALBUMIN 1.5 g/dL (3.4-5.0); BILIRUBIN,DIRECT 0.2 mg/dL (0.0-0.2); BILIRUBIN,TOTAL 0.4 mg/dL (0.2-1.0); CALCIUM 8.3 mg/dL (8.5-10.1); CREATININE 0.8 mg/dL (0.6-1.3); MAGNESIUM 1.7 mg/dL (1.8-2.4); PHOSPHOROUS 3.5 mg/dL (2.5-4.9); POTASSIUM 3.5 mmol/L (3.5-5.1)
[2024-07-22 06:53] LABS: WHITE BLOOD COUNT (AUTO) 30.2 K/uL (3.8-11.8)
[2024-07-22 08:59] LABS: BAND % (MANUAL) 3 % (0-10); NEUTROPHILS % (MANUAL) 85 % (42-75)
[2024-07-22 09:00] LABS: ANISOCYTOSIS 2+; EOSINOPHILS % (MANUAL) 2 % (0-8); LYMPHOCYTES % (MANUAL) 4 % (20-40); METAMYELOCYTES % 1 % (0-1); MONOCYTES % (MANUAL) 5 % (2-10); PLATELET ESTIMATE INCREASED
[2024-07-22 12:06] VITALS: BP 158/78; TEMP 98.5; O2SAT 98
[2024-07-22] MEDS: MAGNESIUM SULFATE/D5W 100 ML IV SCH (13:03)
[2024-07-22 16:25] VITALS: BP 128/72; TEMP 97.8; O2SAT 98
[2024-07-22 18:33] VITALS: O2SAT 96
[2024-07-22 19:00] VITALS: BP 148/57; TEMP 97.6; O2SAT 95
[2024-07-23 06:00] VITALS: BP 130/49; TEMP 97.9; O2SAT 100
[2024-07-23 07:47] LABS: BILIRUBIN,DIRECT 0.2 mg/dL (0.0-0.2); BILIRUBIN,TOTAL 0.6 mg/dL (0.2-1.0); CALCIUM 8.1 mg/dL (8.5-10.1); CREATININE 0.7 mg/dL (0.6-1.3); MAGNESIUM 2.1 mg/dL (1.8-2.4); PHOSPHOROUS 3.3 mg/dL (2.5-4.9); POTASSIUM 3.3 mmol/L (3.5-5.1); TOTAL PROTEIN, SERUM 4.6 g/dL (6.4-8.2)
[2024-07-23 08:17] LABS: ALBUMIN 1.3 g/dL (3.4-5.0); C-REACTIVE PROTEIN 15.92 mg/dL (0.00-0.30)
[2024-07-23 11:45] LABS: BASOPHILS % (AUTO) 0.2 % (0.0-2.0); DIFFERENTIAL COMMENT 0; EOSINOPHILS # (AUTO) 0.4 K/uL (0.0-0.7); EOSINOPHILS % (AUTO) 1.6 % (0.0-7.0); HEMATOCRIT 28.9 % (31.2-41.9); HEMOGLOBIN 9.4 g/dL (10.9-14.3); LYMPHOCYTES # (AUTO) 1.4 K/uL (0.8-4.8); LYMPHOCYTES % (AUTO) 5.8 % (20.5-51.5); MEAN CORPUSCULAR HEMOGLOBIN 29.1 uug (24.7-32.8); MEAN CORPUSCULAR HGB CONC 33 g/dL (32.3-35.6); MEAN CORPUSCULAR VOLUME 89.4 fL (75.5-95.3); MONOCYTES # (AUTO) 1.2 K/uL (0.1-1.30); NEUTROPHILS # (AUTO) 20.6 K/uL (1.8-8.9); NEUTROPHILS % (AUTO) 87.4 % (38.5-71.5); PLATELET COUNT (AUTO) 578 K/uL (179-408); RED BLOOD CELL COUNT(AUTO) 3.23 MIL/uL (3.63-4.92); RED CELL DISTRIBUTION WIDTH 20.4 % (12.3-17.7); WHITE BLOOD COUNT (AUTO) 23.6 K/uL (3.8-11.8)
[2024-07-23 12:00] VITALS: BP 122/61; TEMP 98.8; O2SAT 98
[2024-07-23] MEDS ORDERED: POTASSIUM CHLORIDE 20 MEQ POWDER PACKET GT ONE (15:30)
[2024-07-23 19:30] VITALS: BP 118/66; TEMP 97.9; O2SAT 97
[2024-07-23] MEDS: POTASSIUM CHLORIDE 20 MEQ POWDER PACKET GT ONE (23:08)
[2024-07-23] MEDS: PANTOPRAZOLE ORAL SUSPENSION 40 MG SUSPDR.PKT GT SCH (23:09)
[2024-07-24 04:34] VITALS: O2SAT 97
[2024-07-24 06:30] VITALS: BP 107/65; TEMP 97.4; O2SAT 98
[2024-07-24 09:19] LABS: BASOPHILS # (AUTO) 0.1 K/UL (0.0-0.2); BASOPHILS % (AUTO) 0.5 % (0.0-2.0); DIFFERENTIAL COMMENT 0; EOSINOPHILS # (AUTO) 0.2 K/uL (0.0-0.7); EOSINOPHILS % (AUTO) 0.9 % (0.0-7.0); HEMATOCRIT 26.4 % (31.2-41.9); HEMOGLOBIN 8.7 g/dL (10.9-14.3); LYMPHOCYTES # (AUTO) 1.3 K/uL (0.8-4.8); LYMPHOCYTES % (AUTO) 4.9 % (20.5-51.5); MEAN CORPUSCULAR HEMOGLOBIN 29.6 uug (24.7-32.8); MEAN CORPUSCULAR HGB CONC 33 g/dL (32.3-35.6); MEAN CORPUSCULAR VOLUME 89.5 fL (75.5-95.3); MONOCYTES # (AUTO) 1.1 K/uL (0.1-1.30); MONOCYTES % (AUTO) 3.9 % (0.0-11.0); NEUTROPHILS # (AUTO) 24.5 K/uL (1.8-8.9); NEUTROPHILS % (AUTO) 89.8 % (38.5-71.5); PLATELET COUNT (AUTO) 524 K/uL (179-408); RED BLOOD CELL COUNT(AUTO) 2.95 MIL/uL (3.63-4.92); RED CELL DISTRIBUTION WIDTH 19.8 % (12.3-17.7); WHITE BLOOD COUNT (AUTO) 27.3 K/uL (3.8-11.8)
[2024-07-24 12:00] VITALS: BP 157/52; TEMP 98.1; O2SAT 98
[2024-07-24 14:10] VITALS: O2SAT 98
[2024-07-24 16:00] VITALS: BP 126/60; TEMP 97.8; O2SAT 98
[2024-07-24 19:00] VITALS: BP 135/78; TEMP 97.8; O2SAT 98
[2024-07-25 06:00] VITALS: BP 111/49; TEMP 97.8; O2SAT 98
[2024-07-25 06:40] LABS: CALCIUM 7.5 mg/dL (8.5-10.1); CREATININE 0.7 mg/dL (0.6-1.3); MAGNESIUM 1.8 mg/dL (1.8-2.4); PHOSPHOROUS 3.3 mg/dL (2.5-4.9); POTASSIUM 3.3 mmol/L (3.5-5.1)
[2024-07-25 11:15] VITALS: BP 128/59; TEMP 97.5; O2SAT 100
[2024-07-25 14:48] LABS: BASOPHILS # (AUTO) 0.1 K/UL (0.0-0.2); BASOPHILS % (AUTO) 0.2 % (0.0-2.0); EOSINOPHILS # (AUTO) 0.2 K/uL (0.0-0.7); EOSINOPHILS % (AUTO) 0.9 % (0.0-7.0); HEMATOCRIT 26.1 % (31.2-41.9); HEMOGLOBIN 8.4 g/dL (10.9-14.3); LYMPHOCYTES # (AUTO) 1.4 K/uL (0.8-4.8); LYMPHOCYTES % (AUTO) 5.7 % (20.5-51.5); MEAN CORPUSCULAR HGB CONC 32 g/dL (32.3-35.6); MEAN CORPUSCULAR VOLUME 90.1 fL (75.5-95.3); MONOCYTES % (AUTO) 4.3 % (0.0-11.0); NEUTROPHILS # (AUTO) 21.3 K/uL (1.8-8.9); NEUTROPHILS % (AUTO) 88.9 % (38.5-71.5); PLATELET COUNT (AUTO) 464 K/uL (179-408); RED CELL DISTRIBUTION WIDTH 19.3 % (12.3-17.7)
[2024-07-25] MEDS: POTASSIUM CHLORIDE 20 MEQ POWDER PACKET GT ONE (14:49)
[2024-07-25 14:56] LABS: DIFFERENTIAL COMMENT 1
[2024-07-25 15:43] VITALS: BP 136/62; TEMP 97.9; O2SAT 97
[2024-07-25 16:57] VITALS: O2SAT 98
[2024-07-25 20:03] VITALS: BP 136/68; TEMP 97.7; O2SAT 93
[2024-07-26] VITALS (7 sets, daily range): BP systolic 117–142; BP diastolic 51–74; TEMP 97.2–97.8; O2SAT 96–100
[2024-07-26 08:19] LABS: BILIRUBIN,TOTAL 0.4 mg/dL (0.2-1.0); CALCIUM 7.6 mg/dL (8.5-10.1); CREATININE 0.7 mg/dL (0.6-1.3); MAGNESIUM 2.1 mg/dL (1.8-2.4); POTASSIUM 3.1 mmol/L (3.5-5.1); TOTAL PROTEIN, SERUM 4.1 g/dL (6.4-8.2)
[2024-07-26 08:29] LABS: ALBUMIN 1.1 g/dL (3.4-5.0)
[2024-07-26] MEDS: POTASSIUM CHLORIDE 50 ML IV SCH (11:28)
[2024-07-26 15:26] LABS: BASOPHILS # (AUTO) 0.1 K/UL (0.0-0.2); BASOPHILS % (AUTO) 0.4 % (0.0-2.0); DIFFERENTIAL COMMENT 0; EOSINOPHILS # (AUTO) 0.2 K/uL (0.0-0.7); EOSINOPHILS % (AUTO) 0.8 % (0.0-7.0); HEMATOCRIT 28.5 % (31.2-41.9); HEMOGLOBIN 9.2 g/dL (10.9-14.3); LYMPHOCYTES # (AUTO) 1.4 K/uL (0.8-4.8); LYMPHOCYTES % (AUTO) 5.4 % (20.5-51.5); MEAN CORPUSCULAR HEMOGLOBIN 29.2 uug (24.7-32.8); MEAN CORPUSCULAR HGB CONC 32 g/dL (32.3-35.6); MEAN CORPUSCULAR VOLUME 90.5 fL (75.5-95.3); MONOCYTES % (AUTO) 3.8 % (0.0-11.0); NEUTROPHILS # (AUTO) 22.5 K/uL (1.8-8.9); NEUTROPHILS % (AUTO) 89.6 % (38.5-71.5); PLATELET COUNT (AUTO) 430 K/uL (179-408); RED BLOOD CELL COUNT(AUTO) 3.14 MIL/uL (3.63-4.92); RED CELL DISTRIBUTION WIDTH 19.4 % (12.3-17.7); WHITE BLOOD COUNT (AUTO) 25.1 K/uL (3.8-11.8)
[2024-07-26 15:43] LABS: BAND % (MANUAL) 5 % (0-10); NEUTROPHILS % (MANUAL) 88 % (42-75)
[2024-07-26 15:44] LABS: ANISOCYTOSIS 2+; LYMPHOCYTES % (MANUAL) 4 % (20-40); MONOCYTES % (MANUAL) 3 % (2-10); PLATELET ESTIMATE INCREASED
[2024-07-27] VITALS (20 sets, daily range): BP systolic 77–121; BP diastolic 52–81; TEMP 95–98.9; O2SAT 96–100
[2024-07-27 06:53] LABS: BASOPHILS # (AUTO) 0.1 K/UL (0.0-0.2); BASOPHILS % (AUTO) 0.5 % (0.0-2.0); EOSINOPHILS # (AUTO) 0.2 K/uL (0.0-0.7); EOSINOPHILS % (AUTO) 0.9 % (0.0-7.0); HEMATOCRIT 30.8 % (31.2-41.9); HEMOGLOBIN 9.9 g/dL (10.9-14.3); LYMPHOCYTES # (AUTO) 1.7 K/uL (0.8-4.8); LYMPHOCYTES % (AUTO) 6.5 % (20.5-51.5); MEAN CORPUSCULAR HEMOGLOBIN 30.4 uug (24.7-32.8); MEAN CORPUSCULAR HGB CONC 32 g/dL (32.3-35.6); MEAN CORPUSCULAR VOLUME 94.4 fL (75.5-95.3); MONOCYTES # (AUTO) 1.3 K/uL (0.1-1.30); MONOCYTES % (AUTO) 4.9 % (0.0-11.0); NEUTROPHILS # (AUTO) 22.9 K/uL (1.8-8.9); NEUTROPHILS % (AUTO) 87.2 % (38.5-71.5); PLATELET COUNT (AUTO) 428 K/uL (179-408); RED BLOOD CELL COUNT(AUTO) 3.27 MIL/uL (3.63-4.92); RED CELL DISTRIBUTION WIDTH 20.2 % (12.3-17.7); WHITE BLOOD COUNT (AUTO) 26.3 K/uL (3.8-11.8)
[2024-07-27 07:03] LABS: CALCIUM 7.8 mg/dL (8.5-10.1); CREATININE 0.7 mg/dL (0.6-1.3); POTASSIUM 3.1 mmol/L (3.5-5.1)
[2024-07-27 07:09] LABS: DIFFERENTIAL COMMENT 1
[2024-07-27 07:35] LABS: MAGNESIUM 1.6 mg/dL (1.8-2.4); PHOSPHOROUS 2.7 mg/dL (2.5-4.9)
[2024-07-27] MEDS: MAGNESIUM SULFATE/D5W 100 ML IV SCH (09:01)
[2024-07-27] MEDS: POTASSIUM CHLORIDE 50 ML IV SCH (09:01)
[2024-07-27 12:31] LABS: MAGNESIUM 1.9 mg/dL (1.8-2.4); PHOSPHOROUS 2.5 mg/dL (2.5-4.9)
[2024-07-27 14:13] LABS: CALCIUM 7.9 mg/dL (8.5-10.1); CREATININE 0.8 mg/dL (0.6-1.3)
[2024-07-27 14:18] LABS: POTASSIUM 3.4 mmol/L (3.5-5.1)
[2024-07-27] MEDS ORDERED: PROPOFOL 200 MG/20 ML BOTTLE ONE (17:50)
[2024-07-27] MEDS ORDERED: FENTANYL CITRATE 100 MCG/2 ML AMPUL ONE (17:52)
[2024-07-27] MEDS ORDERED: HYDROMORPHONE 2 MG/1 ML DISP.SYRIN ONE (17:52)
[2024-07-27] MEDS ORDERED: FAMOTIDINE. 20 MG/2 ML VIAL IV ONE (17:53)
[2024-07-27] MEDS ORDERED: ROCURONIUM BROMIDE 50 MG/5 ML VIAL ONE (17:53)
[2024-07-27] MEDS ORDERED: ALBUTEROL SULFATE 8 GM HFA.AER.AD ONE (18:40)
[2024-07-27] MEDS ORDERED: HEPARIN/NS 500 ML ONE (18:53)
[2024-07-27] MEDS ORDERED: BUPIVACAINE/EPI PF 0.25% 10 ML VIAL IJ ONE (20:07)
[2024-07-27] MEDS: NOREPINEPHRINE 8MG/NS 250ML 250 ML IV PRN (22:04)
[2024-07-27] MEDS: MORPHINE SULFATE 2 MG/1 ML DISP.SYRIN IV PRN (22:05)
[2024-07-27] MEDS: PROPOFOL 100 ML IV PRN (22:09)
[2024-07-27 22:10] LABS: ABG BASE EXCESS -4.9 mmol/L (-2.0-3.0); ABG HCO3 19.8 mmol/L (21.0-28.0); ABG PCO2 34.9 mmHg (32.0-45.0); ABG PH 7.371 (7.350-7.450); ABG PO2 116.1 mmHg (83.0-108.0); ABG SITE RIGHT BRACHIAL; ABG TOTAL HEMOGLOBIN 10.3 G/dL (12.0-16.0); AaDO2 98.2 mmHg; COHb 0.3 % (0.5-1.5); O2Hb 96.9 % (94.0-98.0); VT, ABG 500 mL
[2024-07-27] MEDS ORDERED: PIPERACILLIN SODIUM/TAZOBACTAM 3.375 G in IV DEXTROSE 5% 50 ML IV SCH (23:00)
[2024-07-28] VITALS (71 sets, daily range): BP systolic 75–167; BP diastolic 53–110; TEMP 95–98.2; O2SAT 97–100
[2024-07-28] MEDS ORDERED: PIPERACILLIN/TAZOBACTAM/D5W 50 ML IV ONE (01:15)
[2024-07-28] MEDS: PIPERACILLIN SODIUM/TAZOBACTAM 3.375 G in IV DEXTROSE 5% 50 ML IV ONE (01:48)
[2024-07-28 05:11] LABS: BASOPHILS # (AUTO) 0.2 K/UL (0.0-0.2); BASOPHILS % (AUTO) 0.6 % (0.0-2.0); HEMOGLOBIN 9.4 g/dL (10.9-14.3)
[2024-07-28 05:12] LABS: HEMATOCRIT 29.5 % (31.2-41.9); LYMPHOCYTES # (AUTO) 0.6 K/uL (0.8-4.8); LYMPHOCYTES % (AUTO) 1.7 % (20.5-51.5); MEAN CORPUSCULAR HEMOGLOBIN 29.1 uug (24.7-32.8); MEAN CORPUSCULAR HGB CONC 32 g/dL (32.3-35.6); MEAN CORPUSCULAR VOLUME 91.4 fL (75.5-95.3); MONOCYTES # (AUTO) 0.4 K/uL (0.1-1.30); MONOCYTES % (AUTO) 1.1 % (0.0-11.0); NEUTROPHILS # (AUTO) 35.6 K/uL (1.8-8.9); NEUTROPHILS % (AUTO) 96.6 % (38.5-71.5); PLATELET COUNT (AUTO) 340 K/uL (179-408); RED BLOOD CELL COUNT(AUTO) 3.23 MIL/uL (3.63-4.92)
[2024-07-28 05:35] LABS: CALCIUM 7.1 mg/dL (8.5-10.1); CREATININE 0.8 mg/dL (0.6-1.3); MAGNESIUM 1.8 mg/dL (1.8-2.4); POTASSIUM 3.2 mmol/L (3.5-5.1)
[2024-07-28 06:16] LABS: DIFFERENTIAL COMMENT 1
[2024-07-28 06:22] LABS: WHITE BLOOD COUNT (AUTO) 35.7 K/uL (3.8-11.8)
[2024-07-28] MEDS: PIPERACILLIN SODIUM/TAZOBACTAM 3.375 G in IV DEXTROSE 5% 100 ML IV SCH (07:37)
[2024-07-28] MEDS: POTASSIUM CHLORIDE 50 ML IV SCH ×2 (08:44→12:42)
[2024-07-28] MEDS ORDERED: POTASSIUM CHLORIDE 20 MEQ POWDER PACKET GT ONE (09:00)
[2024-07-28] MEDS: FUROSEMIDE 20 MG/2 ML VIAL IV SCH (09:27)
[2024-07-28] MEDS: PANTOPRAZOLE SODIUM 40 MG VIAL IV SCH (09:28)
[2024-07-28] MEDS: ALBUMIN HUMAN 25% 100 ML IV SCH (09:57)
[2024-07-28] MEDS: REMEDY ESSENTIAL ZINC PASTE 113 GM TP PRN (10:11)
[2024-07-28] MEDS: VANCOMYCIN IV 1,250 MG in IV DEXTROSE 5% 250 ML IV SCH (12:05)
[2024-07-28] MEDS: PIPERACILLIN SODIUM/TAZOBACTAM 3.375 G in IV DEXTROSE 5% 50 ML IV SCH (12:43)
[2024-07-29] VITALS (44 sets, daily range): BP systolic 81–134; BP diastolic 53–79; TEMP 97.1–98.3; O2SAT 95–99
[2024-07-29 05:10] LABS: EOSINOPHILS # (AUTO) 0.1 K/uL (0.0-0.7); EOSINOPHILS % (AUTO) 0.2 % (0.0-7.0); MONOCYTES # (AUTO) 0.8 K/uL (0.1-1.30); PLATELET COUNT (AUTO) 281 K/uL (179-408)
[2024-07-29 05:12] LABS: BASOPHILS # (AUTO) 0.1 K/UL (0.0-0.2); BASOPHILS % (AUTO) 0.3 % (0.0-2.0); LYMPHOCYTES # (AUTO) 0.9 K/uL (0.8-4.8); LYMPHOCYTES % (AUTO) 3.2 % (20.5-51.5); MEAN CORPUSCULAR HEMOGLOBIN 30.3 uug (24.7-32.8); MEAN CORPUSCULAR HGB CONC 33 g/dL (32.3-35.6); MEAN CORPUSCULAR VOLUME 90.7 fL (75.5-95.3); MONOCYTES % (AUTO) 2.8 % (0.0-11.0); NEUTROPHILS # (AUTO) 26.4 K/uL (1.8-8.9); NEUTROPHILS % (AUTO) 93.5 % (38.5-71.5); RED CELL DISTRIBUTION WIDTH 19.8 % (12.3-17.7); WHITE BLOOD COUNT (AUTO) 28.2 K/uL (3.8-11.8)
[2024-07-29 05:35] LABS: ALBUMIN 2.8 g/dL (3.4-5.0); BILIRUBIN,DIRECT 0.2 mg/dL (0.0-0.2); BILIRUBIN,TOTAL 0.6 mg/dL (0.2-1.0); CALCIUM 7.2 mg/dL (8.5-10.1); MAGNESIUM 1.8 mg/dL (1.8-2.4); PHOSPHOROUS 2.3 mg/dL (2.5-4.9); POTASSIUM 3.5 mmol/L (3.5-5.1); TOTAL PROTEIN, SERUM 4.8 g/dL (6.4-8.2)
[2024-07-29 05:39] LABS: HEMOGLOBIN 7.4 g/dL (10.9-14.3); RED BLOOD CELL COUNT(AUTO) 2.43 MIL/uL (3.63-4.92)
[2024-07-29 05:43] LABS: DIFFERENTIAL COMMENT 1
[2024-07-29 06:27] LABS: ABG BASE EXCESS -7.9 mmol/L (-2.0-3.0); ABG HCO3 15.5 mmol/L (21.0-28.0); ABG PCO2 24.5 mmHg (32.0-45.0); ABG PH 7.419 (7.350-7.450); ABG PO2 130.4 mmHg (83.0-108.0); ABG SITE LEFT RADIAL; ABG TOTAL HEMOGLOBIN 8.2 G/dL (12.0-16.0); AaDO2 98.7 mmHg; COHb 0.3 % (0.5-1.5); MetHb 1.1 % (0.0-1.5); VT, ABG 500 mL
[2024-07-29] MEDS: FUROSEMIDE 20 MG/2 ML VIAL IV SCH (08:29)
[2024-07-29] MEDS ORDERED: PIPERACILLIN SODIUM/TAZOBACTAM 3.375 G in IV DEXTROSE 5% 100 ML IV SCH (14:00)
[2024-07-29] MEDS: PIPERACILLIN SODIUM/TAZOBACTAM 3.375 G in IV DEXTROSE 5% 100 ML IV SCH (14:21)
[2024-07-29] MEDS ORDERED: SODIUM PHOSPHATE MM 15 MMOL in IV NORMAL SALINE 250 ML IV ONE (16:00)
[2024-07-29] MEDS: NEUTRA PHOS PACKET GT ONE (17:11)
[2024-07-30] VITALS (61 sets, daily range): BP systolic 80–146; BP diastolic 49–103; TEMP 98–98.3; O2SAT 93–100
[2024-07-30 05:12] LABS: BASOPHILS # (AUTO) 0.2 K/UL (0.0-0.2); BASOPHILS % (AUTO) 0.6 % (0.0-2.0); EOSINOPHILS # (AUTO) 0.3 K/uL (0.0-0.7); EOSINOPHILS % (AUTO) 1.3 % (0.0-7.0); HEMATOCRIT 24.4 % (31.2-41.9); HEMOGLOBIN 8.3 g/dL (10.9-14.3); LYMPHOCYTES # (AUTO) 1.8 K/uL (0.8-4.8); LYMPHOCYTES % (AUTO) 6.6 % (20.5-51.5); MEAN CORPUSCULAR HEMOGLOBIN 30.6 uug (24.7-32.8); MEAN CORPUSCULAR HGB CONC 34 g/dL (32.3-35.6); MEAN CORPUSCULAR VOLUME 90.2 fL (75.5-95.3); MONOCYTES # (AUTO) 0.7 K/uL (0.1-1.30); MONOCYTES % (AUTO) 2.4 % (0.0-11.0); NEUTROPHILS # (AUTO) 24.4 K/uL (1.8-8.9); NEUTROPHILS % (AUTO) 89.1 % (38.5-71.5); PLATELET COUNT (AUTO) 248 K/uL (179-408); RED CELL DISTRIBUTION WIDTH 19.1 % (12.3-17.7); WHITE BLOOD COUNT (AUTO) 27.4 K/uL (3.8-11.8)
[2024-07-30 05:37] LABS: MAGNESIUM 1.6 mg/dL (1.8-2.4); POTASSIUM 3.4 mmol/L (3.5-5.1)
[2024-07-30 05:41] LABS: VANCOMYCIN,TROUGH 37.5 ug/mL (10.0-20.0)
[2024-07-30] MEDS: MAGNESIUM SULFATE/D5W 100 ML IV SCH (08:03)
[2024-07-30] MEDS: POTASSIUM CHLORIDE 50 ML IV SCH (08:03)
[2024-07-30] MEDS ORDERED: CARVEDILOL 6.25 MG TABLET GT SCH (09:00)
[2024-07-30] MEDS ORDERED: LOSARTAN POTASSIUM 25 MG TABLET PO SCH (09:00)
[2024-07-30 09:48] LABS: ABG BASE EXCESS -3.9 mmol/L (-2.0-3.0); ABG HCO3 19.2 mmol/L (21.0-28.0); ABG PCO2 28.1 mmHg (32.0-45.0); ABG PH 7.452 (7.350-7.450); ABG PO2 79.6 mmHg (83.0-108.0); ABG SITE LEFT RADIAL; ABG TOTAL HEMOGLOBIN 9.4 G/dL (12.0-16.0); AaDO2 96.5 mmHg; COHb 0.3 % (0.5-1.5); MetHb 0.6 % (0.0-1.5); O2Hb 95.5 % (94.0-98.0)
[2024-07-30] MEDS: NYSTATIN POWDER 15 GM BOTTLE TOP SCH (14:30)
[2024-07-31] VITALS (30 sets, daily range): BP systolic 82–110; BP diastolic 65–89; TEMP 97.5–98.4; O2SAT 94–100
[2024-07-31 06:04] LABS: BASOPHILS % (AUTO) 0.1 % (0.0-2.0); EOSINOPHILS # (AUTO) 0.4 K/uL (0.0-0.7); EOSINOPHILS % (AUTO) 1.4 % (0.0-7.0); HEMATOCRIT 26.5 % (31.2-41.9); HEMOGLOBIN 8.7 g/dL (10.9-14.3); LYMPHOCYTES # (AUTO) 1.6 K/uL (0.8-4.8); LYMPHOCYTES % (AUTO) 5.6 % (20.5-51.5); MEAN CORPUSCULAR HEMOGLOBIN 29.6 uug (24.7-32.8); MEAN CORPUSCULAR HGB CONC 33 g/dL (32.3-35.6); MONOCYTES # (AUTO) 0.9 K/uL (0.1-1.30); MONOCYTES % (AUTO) 3.3 % (0.0-11.0); NEUTROPHILS # (AUTO) 25.2 K/uL (1.8-8.9); NEUTROPHILS % (AUTO) 89.6 % (38.5-71.5); PLATELET COUNT (AUTO) 243 K/uL (179-408); RED BLOOD CELL COUNT(AUTO) 2.94 MIL/uL (3.63-4.92); RED CELL DISTRIBUTION WIDTH 19.1 % (12.3-17.7); WHITE BLOOD COUNT (AUTO) 28.1 K/uL (3.8-11.8)
[2024-07-31 06:16] LABS: CALCIUM 7.4 mg/dL (8.5-10.1); CREATININE 0.9 mg/dL (0.6-1.3); POTASSIUM 6.2 mmol/L (3.5-5.1); VANCOMYCIN,RANDOM 25.2 ug/mL (20.0-30.0)
[2024-07-31 09:13] LABS: CALCIUM 7.4 mg/dL (8.5-10.1); CREATININE 0.9 mg/dL (0.6-1.3); POTASSIUM 3.5 mmol/L (3.5-5.1)
[2024-07-31] MEDS: BUMETANIDE INJ 6 MG in IV DEXTROSE 5% 36 ML IV ONE (13:43)
[2024-08-01] VITALS (83 sets, daily range): BP systolic 47–130; BP diastolic 21–102; TEMP 97.3–98.4; O2SAT 95–100
[2024-08-01] MEDS: NOREPINEPHRINE 8MG/NS 250ML 250 ML IV PRN (04:19)
[2024-08-01 06:49] LABS: BASOPHILS # (AUTO) 0.2 K/UL (0.0-0.2); BASOPHILS % (AUTO) 0.5 % (0.0-2.0); EOSINOPHILS # (AUTO) 0.4 K/uL (0.0-0.7); EOSINOPHILS % (AUTO) 1.4 % (0.0-7.0); HEMATOCRIT 28.3 % (31.2-41.9); HEMOGLOBIN 9.5 g/dL (10.9-14.3); LYMPHOCYTES # (AUTO) 1.8 K/uL (0.8-4.8); MEAN CORPUSCULAR HEMOGLOBIN 30.1 uug (24.7-32.8); MEAN CORPUSCULAR HGB CONC 34 g/dL (32.3-35.6); MEAN CORPUSCULAR VOLUME 89.8 fL (75.5-95.3); MONOCYTES # (AUTO) 1.5 K/uL (0.1-1.30); NEUTROPHILS # (AUTO) 25.4 K/uL (1.8-8.9); NEUTROPHILS % (AUTO) 87.1 % (38.5-71.5); PLATELET COUNT (AUTO) 277 K/uL (179-408); RED BLOOD CELL COUNT(AUTO) 3.15 MIL/uL (3.63-4.92); RED CELL DISTRIBUTION WIDTH 19.1 % (12.3-17.7); WHITE BLOOD COUNT (AUTO) 29.2 K/uL (3.8-11.8)
[2024-08-01 07:02] LABS: DIFFERENTIAL COMMENT 1
[2024-08-01 07:07] LABS: CALCIUM 7.5 mg/dL (8.5-10.1); CREATININE 0.9 mg/dL (0.6-1.3); VANCOMYCIN,RANDOM 19.7 ug/mL (20.0-30.0)
[2024-08-01] MEDS: POTASSIUM CHLORIDE 20 MEQ POWDER PACKET GT ONE ×2 (10:08→13:00)
[2024-08-01] MEDS ORDERED: IV DEXTROSE 5% 100 ML BAG IV ONE (10:45)
[2024-08-01] MEDS ORDERED: IV DEXTROSE 5% 500 ML IV SCH (11:00)
[2024-08-01] MEDS: IV DEXTROSE 5% 500 ML IV ONE (11:17)
[2024-08-01] MEDS ORDERED: IV NORMAL SALINE 250 ML IV ONE (11:44)
[2024-08-01] MEDS ORDERED: SWABABLE VALVE TRANSFER SET EA MC ONE (11:44)
[2024-08-01] MEDS ORDERED: IOHEXOL 300MG/ML 100 ML INFUS..BTL ONE (11:44)
[2024-08-01 13:10] LABS: MAGNESIUM 1.9 mg/dL (1.8-2.4); PHOSPHOROUS 2.4 mg/dL (2.5-4.9)
[2024-08-01] MEDS: SODIUM HYPOCHLORITE 0.125% (QUARTER STRENGTH) 473 ML BOTTLE TP SCH (14:14)
[2024-08-01] MEDS ORDERED: POTASSIUM PHOSPHATE MM 15 MMOL in IV NORMAL SALINE 250 ML IV ONE (14:45)
[2024-08-01] MEDS ORDERED: NEUTRA PHOS PACKET GT SCH (16:00)
[2024-08-01] MEDS: CEFEPIME HCL 2 GM in IV DEXTROSE 5% 100 ML IV SCH (20:00)
[2024-08-01] MEDS ORDERED: CEFEPIME HCL 1 G VIAL ONE (21:44)
[2024-08-02] VITALS (81 sets, daily range): BP systolic 80–124; BP diastolic 63–104; TEMP 97.5–98.7; O2SAT 94–100
[2024-08-02 05:15] LABS: BASOPHILS # (AUTO) 0.1 K/UL (0.0-0.2); BASOPHILS % (AUTO) 0.4 % (0.0-2.0); EOSINOPHILS # (AUTO) 0.4 K/uL (0.0-0.7); EOSINOPHILS % (AUTO) 1.5 % (0.0-7.0); HEMATOCRIT 28.9 % (31.2-41.9); HEMOGLOBIN 9.6 g/dL (10.9-14.3); LYMPHOCYTES # (AUTO) 1.8 K/uL (0.8-4.8); MEAN CORPUSCULAR HEMOGLOBIN 29.6 uug (24.7-32.8); MEAN CORPUSCULAR HGB CONC 33 g/dL (32.3-35.6); MEAN CORPUSCULAR VOLUME 89.4 fL (75.5-95.3); MONOCYTES # (AUTO) 1.5 K/uL (0.1-1.30); MONOCYTES % (AUTO) 5.2 % (0.0-11.0); NEUTROPHILS # (AUTO) 25.4 K/uL (1.8-8.9); NEUTROPHILS % (AUTO) 86.9 % (38.5-71.5); PLATELET COUNT (AUTO) 258 K/uL (179-408); RED BLOOD CELL COUNT(AUTO) 3.23 MIL/uL (3.63-4.92); RED CELL DISTRIBUTION WIDTH 18.6 % (12.3-17.7); WHITE BLOOD COUNT (AUTO) 29.3 K/uL (3.8-11.8)
[2024-08-02 05:18] LABS: DIFFERENTIAL COMMENT 1
[2024-08-02 05:35] LABS: ALBUMIN 1.5 g/dL (3.4-5.0); BILIRUBIN,DIRECT 0.3 mg/dL (0.0-0.2); BILIRUBIN,TOTAL 0.6 mg/dL (0.2-1.0); CALCIUM 7.4 mg/dL (8.5-10.1); CREATININE 0.9 mg/dL (0.6-1.3); MAGNESIUM 1.6 mg/dL (1.8-2.4); PHOSPHOROUS 2.4 mg/dL (2.5-4.9); POTASSIUM 3.7 mmol/L (3.5-5.1); TOTAL PROTEIN, SERUM 4.5 g/dL (6.4-8.2); VANCOMYCIN,RANDOM 15.4 ug/mL (20.0-30.0)
[2024-08-02] MEDS: NYSTATIN OINTMENT 15 GM TUBE TOP SCH (09:15)
[2024-08-02] MEDS: VANCOMYCIN HCL 750 MG in IV DEXTROSE 5% 250 ML IV ONE (10:42)
[2024-08-02] MEDS: MAGNESIUM SULFATE/D5W 100 ML IV SCH (10:42)
[2024-08-02] MEDS ORDERED: MIDODRINE HCL 2.5 MG TABLET PO SCH (14:00)
[2024-08-02] MEDS: CEFEPIME HCL 2 GM in IV DEXTROSE 5% 100 ML IV SCH (14:01)
[2024-08-02] MEDS: MIDODRINE HCL 5 MG TABLET PO SCH (14:02)
[2024-08-02] MEDS: NEUTRA PHOS PACKET GT ONE (16:57)
[2024-08-03] VITALS (31 sets, daily range): BP systolic 85–128; BP diastolic 58–91; TEMP 97.8–98; O2SAT 94–99
[2024-08-03 05:18] LABS: CALCIUM 7.7 mg/dL (8.5-10.1); CREATININE 0.9 mg/dL (0.6-1.3); MAGNESIUM 2.3 mg/dL (1.8-2.4); VANCOMYCIN,RANDOM 20.8 ug/mL (20.0-30.0)
[2024-08-03] MEDS: LORATADINE 10 MG TABLET PO SCH (20:15)
[2024-08-03] MEDS ORDERED: MEROPENEM 1GM/NS 100ML IVPB **ER PYXIS ONLY IV ONE (20:18)
[2024-08-03] MEDS: MEROPENEM 1 G in IV NORMAL SALINE 100 ML IV SCH (20:30)
[2024-08-04] VITALS (15 sets, daily range): BP systolic 84–166; BP diastolic 61–95; TEMP 97.9–98.5; O2SAT 93–100
[2024-08-04 04:57] LABS: BASOPHILS # (AUTO) 0.1 K/UL (0.0-0.2); BASOPHILS % (AUTO) 0.4 % (0.0-2.0); EOSINOPHILS # (AUTO) 0.4 K/uL (0.0-0.7); EOSINOPHILS % (AUTO) 1.8 % (0.0-7.0); HEMATOCRIT 25.7 % (31.2-41.9); HEMOGLOBIN 8.7 g/dL (10.9-14.3); LYMPHOCYTES # (AUTO) 1.9 K/uL (0.8-4.8); LYMPHOCYTES % (AUTO) 8.1 % (20.5-51.5); MEAN CORPUSCULAR HEMOGLOBIN 30.1 uug (24.7-32.8); MEAN CORPUSCULAR HGB CONC 34 g/dL (32.3-35.6); MEAN CORPUSCULAR VOLUME 89.4 fL (75.5-95.3); MONOCYTES # (AUTO) 0.9 K/uL (0.1-1.30); MONOCYTES % (AUTO) 3.7 % (0.0-11.0); NEUTROPHILS # (AUTO) 20.8 K/uL (1.8-8.9); PLATELET COUNT (AUTO) 241 K/uL (179-408); RED BLOOD CELL COUNT(AUTO) 2.88 MIL/uL (3.63-4.92); RED CELL DISTRIBUTION WIDTH 18.4 % (12.3-17.7); WHITE BLOOD COUNT (AUTO) 24.1 K/uL (3.8-11.8)
[2024-08-04 05:42] LABS: CALCIUM 7.6 mg/dL (8.5-10.1); CREATININE 1.1 mg/dL (0.6-1.3); MAGNESIUM 2.1 mg/dL (1.8-2.4); PHOSPHOROUS 2.6 mg/dL (2.5-4.9); POTASSIUM 3.9 mmol/L (3.5-5.1); VANCOMYCIN,RANDOM 15.3 ug/mL (20.0-30.0)
[2024-08-04] MEDS: MEROPENEM 1 G in IV NORMAL SALINE 100 ML IV SCH (08:21)
[2024-08-04] MEDS: VANCOMYCIN HCL 750 MG in IV DEXTROSE 5% 250 ML IV ONE (13:59)
[2024-08-05] VITALS (7 sets, daily range): BP systolic 126–157; BP diastolic 69–87; TEMP 97–98.1; O2SAT 94–97
[2024-08-05 07:01] LABS: BASOPHILS # (AUTO) 0.1 K/UL (0.0-0.2); BASOPHILS % (AUTO) 0.3 % (0.0-2.0); EOSINOPHILS # (AUTO) 0.2 K/uL (0.0-0.7); EOSINOPHILS % (AUTO) 0.7 % (0.0-7.0); HEMATOCRIT 27.6 % (31.2-41.9); HEMOGLOBIN 9.1 g/dL (10.9-14.3); LYMPHOCYTES # (AUTO) 1.6 K/uL (0.8-4.8); LYMPHOCYTES % (AUTO) 5.7 % (20.5-51.5); MEAN CORPUSCULAR HEMOGLOBIN 29.8 uug (24.7-32.8); MEAN CORPUSCULAR HGB CONC 33 g/dL (32.3-35.6); MEAN CORPUSCULAR VOLUME 89.9 fL (75.5-95.3); MONOCYTES % (AUTO) 3.7 % (0.0-11.0); NEUTROPHILS # (AUTO) 25.2 K/uL (1.8-8.9); NEUTROPHILS % (AUTO) 89.6 % (38.5-71.5); PLATELET COUNT (AUTO) 254 K/uL (179-408); RED BLOOD CELL COUNT(AUTO) 3.06 MIL/uL (3.63-4.92); WHITE BLOOD COUNT (AUTO) 28.1 K/uL (3.8-11.8)
[2024-08-05 07:09] LABS: DIFFERENTIAL COMMENT 1
[2024-08-05 07:15] LABS: CALCIUM 7.9 mg/dL (8.5-10.1); MAGNESIUM 2.4 mg/dL (1.8-2.4); PHOSPHOROUS 2.4 mg/dL (2.5-4.9); VANCOMYCIN,RANDOM 21.9 ug/mL (20.0-30.0)
[2024-08-05 07:45] LABS: ANISOCYTOSIS 1+; BAND % (MANUAL) 4 % (0-10); LYMPHOCYTES % (MANUAL) 7 % (20-40); METAMYELOCYTES % 1 % (0-1); MONOCYTES % (MANUAL) 4 % (2-10); NEUTROPHILS % (MANUAL) 84 % (42-75); PLATELET ESTIMATE ADEQUATE
[2024-08-05] MEDS: MEROPENEM 1 G in IV NORMAL SALINE 100 ML IV SCH (17:05)
[2024-08-05] MEDS: NEUTRA PHOS PACKET GT ONE (17:05)
[2024-08-06 04:00] VITALS: BP 144/85; TEMP 97.8; O2SAT 98
[2024-08-06 06:53] LABS: BASOPHILS # (AUTO) 0.2 K/UL (0.0-0.2); HEMOGLOBIN 9.2 g/dL (10.9-14.3); LYMPHOCYTES # (AUTO) 4.2 K/uL (0.8-4.8); PLATELET COUNT (AUTO) 318 K/uL (179-408); RED BLOOD CELL COUNT(AUTO) 3.06 MIL/uL (3.63-4.92)
[2024-08-06 06:55] LABS: BASOPHILS % (AUTO) 0.6 % (0.0-2.0); EOSINOPHILS # (AUTO) 0.1 K/uL (0.0-0.7); EOSINOPHILS % (AUTO) 0.4 % (0.0-7.0); HEMATOCRIT 27.9 % (31.2-41.9); LYMPHOCYTES % (AUTO) 13.5 % (20.5-51.5); MEAN CORPUSCULAR HEMOGLOBIN 30.2 uug (24.7-32.8); MEAN CORPUSCULAR HGB CONC 33 g/dL (32.3-35.6); MEAN CORPUSCULAR VOLUME 91.2 fL (75.5-95.3); MONOCYTES % (AUTO) 3.2 % (0.0-11.0); NEUTROPHILS # (AUTO) 25.3 K/uL (1.8-8.9); NEUTROPHILS % (AUTO) 82.3 % (38.5-71.5); RED CELL DISTRIBUTION WIDTH 18.1 % (12.3-17.7)
[2024-08-06 07:14] LABS: DIFFERENTIAL COMMENT 1
[2024-08-06 07:39] LABS: CALCIUM 7.8 mg/dL (8.5-10.1); PHOSPHOROUS 2.2 mg/dL (2.5-4.9); POTASSIUM 4.6 mmol/L (3.5-5.1)
[2024-08-06 07:52] VITALS: BP 131/73; TEMP 97.9; O2SAT 98
[2024-08-06 08:19] LABS: WHITE BLOOD COUNT (AUTO) 30.7 K/uL (3.8-11.8)
[2024-08-06 11:53] VITALS: BP 140/73; TEMP 97.8; O2SAT 94
[2024-08-06 13:49] LABS: BAND % (MANUAL) 16 % (0-10); LYMPHOCYTES % (MANUAL) 17 % (20-40); MONOCYTES % (MANUAL) 5 % (2-10); NEUTROPHILS % (MANUAL) 53 % (42-75)
[2024-08-06 13:50] LABS: ANISOCYTOSIS 2+; METAMYELOCYTES % 4 % (0-1); PLATELET ESTIMATE ADEQUATE; REACTIVE LYMPHOCYTES 5 % (0-0)
[2024-08-06 15:12] LABS: IRON, SERUM 46 ug/dL (50-175)
[2024-08-06 15:50] LABS: FERRITIN 2480 ng/mL (8-252); LACTATE DEHYDROGENASE 353 U/L (81-234)
[2024-08-06 16:28] VITALS: BP 138/71; TEMP 98; O2SAT 99
[2024-08-06] MEDS: NEUTRA PHOS PACKET GT ONE (16:33)
[2024-08-06] MEDS: PANTOPRAZOLE ORAL SUSPENSION 40 MG SUSPDR.PKT GT SCH (16:54)
[2024-08-06 19:39] VITALS: BP 144/81; TEMP 97.7; O2SAT 94
[2024-08-06] MEDS: CULTURELLE CAPSULE GT SCH (20:32)
[2024-08-06] MEDS: VANCOMYCIN FOR PO/GT/NG USE PO SCH (20:37)
[2024-08-07 04:48] VITALS: BP 153/80; TEMP 97.9; O2SAT 98
[2024-08-07 08:10] LABS: *IMMUNOGLOBULIN G, SERUM 936 mg/dL (586-1602); CARCINOEMBRYONIC AG (CEA) 2.9 ng/mL (0.0-4.7); IMMUNOGLOBULIN A, SERUM 413 mg/dL (87-352); IMMUNOGLOBULIN M, SERUM 33 mg/dL (26-217)
[2024-08-07 10:06] LABS: FOLATE (FOLIC ACID), SERUM 7.4 ng/mL (>3.0)
[2024-08-07] MEDS ORDERED: DIATR MEGLU/DIATRIZOATE SODIUM 30 ML BOTTLE ONE (11:35)
[2024-08-07 11:43] VITALS: BP 124/68; TEMP 97.2; O2SAT 99
[2024-08-07] MEDS ORDERED: IV NORMAL SALINE 250 ML IV ONE (14:07)
[2024-08-07] MEDS ORDERED: SWABABLE VALVE TRANSFER SET EA MC ONE (14:07)
[2024-08-07] MEDS ORDERED: IOHEXOL 300MG/ML 100 ML INFUS..BTL ONE (14:07)
[2024-08-07 15:31] LABS: BASOPHILS # (AUTO) 0.1 K/UL (0.0-0.2); BASOPHILS % (AUTO) 0.3 % (0.0-2.0); DIFFERENTIAL COMMENT 0; EOSINOPHILS # (AUTO) 0.2 K/uL (0.0-0.7); EOSINOPHILS % (AUTO) 0.7 % (0.0-7.0); LYMPHOCYTES # (AUTO) 2.9 K/uL (0.8-4.8); LYMPHOCYTES % (AUTO) 9.8 % (20.5-51.5); MEAN CORPUSCULAR HEMOGLOBIN 29.4 uug (24.7-32.8); MEAN CORPUSCULAR HGB CONC 32 g/dL (32.3-35.6); MEAN CORPUSCULAR VOLUME 91.7 fL (75.5-95.3); MONOCYTES % (AUTO) 3.4 % (0.0-11.0); NEUTROPHILS # (AUTO) 25.2 K/uL (1.8-8.9); NEUTROPHILS % (AUTO) 85.8 % (38.5-71.5); PLATELET COUNT (AUTO) 283 K/uL (179-408); RED BLOOD CELL COUNT(AUTO) 2.72 MIL/uL (3.63-4.92); RED CELL DISTRIBUTION WIDTH 18.2 % (12.3-17.7); WHITE BLOOD COUNT (AUTO) 29.3 K/uL (3.8-11.8)
[2024-08-07 15:49] LABS: BILIRUBIN,DIRECT 0.2 mg/dL (0.0-0.2); BILIRUBIN,TOTAL 0.4 mg/dL (0.2-1.0); CALCIUM 7.5 mg/dL (8.5-10.1); CREATININE 0.8 mg/dL (0.6-1.3); MAGNESIUM 1.9 mg/dL (1.8-2.4); PHOSPHOROUS 2.4 mg/dL (2.5-4.9); POTASSIUM 4.5 mmol/L (3.5-5.1); TOTAL PROTEIN, SERUM 4.3 g/dL (6.4-8.2)
[2024-08-07 15:54] LABS: ALBUMIN 1.1 g/dL (3.4-5.0)
[2024-08-07 16:07] LABS: FREE KAPPA LT CHAINS SERUM 126.7 mg/L (3.3-19.4); KAPPA/LAMBDA RATIO SERUM 0.99 (0.26-1.65)
[2024-08-07 16:13] VITALS: BP 115/66; TEMP 97.4; O2SAT 100
[2024-08-07 16:42] LABS: BAND % (MANUAL) 4 % (0-10); EOSINOPHILS % (MANUAL) 1 % (0-8); LYMPHOCYTES % (MANUAL) 7 % (20-40); MONOCYTES % (MANUAL) 5 % (2-10); NEUTROPHILS % (MANUAL) 83 % (42-75); PLATELET ESTIMATE ADEQUATE
[2024-08-07 16:43] LABS: ANISOCYTOSIS 2+; HYPOCHROMASIA 1+; STOMATOCYTES 1+
[2024-08-07] MEDS: FAMOTIDINE. 20 MG/2 ML VIAL IV ONE (18:26)
[2024-08-07] MEDS: methylPREDNISolone SOD SUCC 40 MG/ML VIAL IV ONE (18:26)
[2024-08-07] MEDS: diphenhydrAMINE 50 MG/1 ML VIAL IV ONE (18:27)
[2024-08-07 20:00] VITALS: BP 154/77; TEMP 97.3; O2SAT 98
[2024-08-08 04:30] VITALS: BP 151/81; TEMP 97.5; O2SAT 97
[2024-08-08 06:56] LABS: BASOPHILS % (AUTO) 0.1 % (0.0-2.0); EOSINOPHILS % (AUTO) 0.2 % (0.0-7.0); HEMATOCRIT 24.5 % (31.2-41.9); HEMOGLOBIN 8.1 g/dL (10.9-14.3); LYMPHOCYTES # (AUTO) 1.5 K/uL (0.8-4.8); LYMPHOCYTES % (AUTO) 5.4 % (20.5-51.5); MEAN CORPUSCULAR HEMOGLOBIN 30.5 uug (24.7-32.8); MEAN CORPUSCULAR HGB CONC 33 g/dL (32.3-35.6); MEAN CORPUSCULAR VOLUME 91.9 fL (75.5-95.3); MONOCYTES # (AUTO) 0.4 K/uL (0.1-1.30); MONOCYTES % (AUTO) 1.6 % (0.0-11.0); NEUTROPHILS # (AUTO) 24.7 K/uL (1.8-8.9); NEUTROPHILS % (AUTO) 92.7 % (38.5-71.5); PLATELET COUNT (AUTO) 349 K/uL (179-408); RED BLOOD CELL COUNT(AUTO) 2.66 MIL/uL (3.63-4.92); RED CELL DISTRIBUTION WIDTH 18.3 % (12.3-17.7); WHITE BLOOD COUNT (AUTO) 26.6 K/uL (3.8-11.8)
[2024-08-08 07:12] LABS: DIFFERENTIAL COMMENT 1
[2024-08-08 07:15] LABS: CALCIUM 7.8 mg/dL (8.5-10.1); MAGNESIUM 1.9 mg/dL (1.8-2.4); PHOSPHOROUS 2.8 mg/dL (2.5-4.9); POTASSIUM 4.8 mmol/L (3.5-5.1)
[2024-08-08 08:22] LABS: BAND % (MANUAL) 4 % (0-10); EOSINOPHILS % (MANUAL) 1 % (0-8); LYMPHOCYTES % (MANUAL) 1 % (20-40); METAMYELOCYTES % 2 % (0-1); MONOCYTES % (MANUAL) 2 % (2-10); MYELOCYTES % 1 % (0-0); NEUTROPHILS % (MANUAL) 89 % (42-75)
[2024-08-08 08:23] LABS: ANISOCYTOSIS 2+; PLATELET ESTIMATE ADEQUATE
[2024-08-08 09:31] VITALS: BP 143/78; TEMP 97.8; O2SAT 96
[2024-08-08] MEDS: FAMOTIDINE. 20 MG/2 ML VIAL IV ONE (13:49)
[2024-08-08] MEDS: diphenhydrAMINE 50 MG/1 ML VIAL IV ONE (13:49)
[2024-08-08] MEDS: methylPREDNISolone SOD SUCC 125 MG/2 ML VIAL IV ONE (13:49)
[2024-08-08 20:00] VITALS: TEMP 97.9
[2024-08-08] MEDS: AMMONIUM LACTATE 12% LOTION 225 GM BOTTLE TP SCH (21:00)
[2024-08-09 00:27] VITALS: BP 152/81; TEMP 97.9; O2SAT 97
[2024-08-09 05:32] VITALS: BP 155/92; TEMP 97.5; O2SAT 99
[2024-08-09 06:40] LABS: BASOPHILS % (AUTO) 0.2 % (0.0-2.0); HEMATOCRIT 23.7 % (31.2-41.9); HEMOGLOBIN 7.9 g/dL (10.9-14.3); LYMPHOCYTES % (AUTO) 8.2 % (20.5-51.5); MEAN CORPUSCULAR HEMOGLOBIN 30.8 uug (24.7-32.8); MEAN CORPUSCULAR HGB CONC 33 g/dL (32.3-35.6); MEAN CORPUSCULAR VOLUME 92.3 fL (75.5-95.3); MONOCYTES # (AUTO) 0.7 K/uL (0.1-1.30); MONOCYTES % (AUTO) 2.8 % (0.0-11.0); NEUTROPHILS # (AUTO) 21.7 K/uL (1.8-8.9); NEUTROPHILS % (AUTO) 88.8 % (38.5-71.5); PLATELET COUNT (AUTO) 369 K/uL (179-408); RED BLOOD CELL COUNT(AUTO) 2.57 MIL/uL (3.63-4.92); RED CELL DISTRIBUTION WIDTH 18.3 % (12.3-17.7); WHITE BLOOD COUNT (AUTO) 24.4 K/uL (3.8-11.8)
[2024-08-09 06:58] LABS: DIFFERENTIAL COMMENT 1
[2024-08-09 07:19] LABS: BILIRUBIN,DIRECT 0.1 mg/dL (0.0-0.2); BILIRUBIN,TOTAL 0.4 mg/dL (0.2-1.0); CALCIUM 8.1 mg/dL (8.5-10.1); POTASSIUM 4.4 mmol/L (3.5-5.1)
[2024-08-09 07:25] LABS: ALBUMIN 1.3 g/dL (3.4-5.0)
[2024-08-09 07:58] VITALS: BP 166/82; TEMP 97.7; O2SAT 98
[2024-08-09 11:33] VITALS: BP 148/81; TEMP 97.6; O2SAT 99
[2024-08-09 15:47] VITALS: BP 149/71; TEMP 97.1; O2SAT 97
[2024-08-09] MEDS: ARGININE/GLUTAMINE/CALCIUM BMB 1 EACH POWD.PACK GT SCH (17:28)
[2024-08-09 20:00] VITALS: BP 160/64; TEMP 97.3; O2SAT 97
[2024-08-10 05:00] VITALS: BP 156/80; TEMP 97.7; O2SAT 98
[2024-08-10 06:33] LABS: BASOPHILS # (AUTO) 0.1 K/UL (0.0-0.2); BASOPHILS % (AUTO) 0.4 % (0.0-2.0); EOSINOPHILS # (AUTO) 0.4 K/uL (0.0-0.7); EOSINOPHILS % (AUTO) 2.2 % (0.0-7.0); HEMATOCRIT 22.8 % (31.2-41.9); HEMOGLOBIN 7.6 g/dL (10.9-14.3); LYMPHOCYTES % (AUTO) 15.5 % (20.5-51.5); MEAN CORPUSCULAR HEMOGLOBIN 30.5 uug (24.7-32.8); MEAN CORPUSCULAR HGB CONC 33 g/dL (32.3-35.6); MONOCYTES # (AUTO) 0.9 K/uL (0.1-1.30); MONOCYTES % (AUTO) 4.6 % (0.0-11.0); NEUTROPHILS # (AUTO) 15.2 K/uL (1.8-8.9); NEUTROPHILS % (AUTO) 77.3 % (38.5-71.5); PLATELET COUNT (AUTO) 396 K/uL (179-408); RED CELL DISTRIBUTION WIDTH 18.6 % (12.3-17.7); WHITE BLOOD COUNT (AUTO) 19.6 K/uL (3.8-11.8)
[2024-08-10 06:43] LABS: DIFFERENTIAL COMMENT 1; RED BLOOD CELL COUNT(AUTO) 2.48 MIL/uL (3.63-4.92)
[2024-08-10 06:55] LABS: CALCIUM 8.2 mg/dL (8.5-10.1); CREATININE 0.8 mg/dL (0.6-1.3); PHOSPHOROUS 2.6 mg/dL (2.5-4.9)
[2024-08-10 07:23] LABS: POTASSIUM 4.6 mmol/L (3.5-5.1)
[2024-08-10 08:00] VITALS: BP 155/60; TEMP 97.9; O2SAT 96
[2024-08-10 11:43] LABS: HEMATOCRIT 22.4 % (31.2-41.9)
[2024-08-10 12:00] VITALS: BP 160/75; TEMP 98; O2SAT 96
[2024-08-10 12:43] LABS: HEMOGLOBIN 7.1 g/dL (10.9-14.3)
[2024-08-10] MEDS ORDERED: IV D5W-0.45% NS 1000 ML BAG IV PRN (13:15)
[2024-08-10] MEDS: IV D5 1/2 NS 1000 ML 1,000 ML IV PRN (14:27)
[2024-08-10] MEDS: diphenhydrAMINE 50 MG/1 ML VIAL IV ONE (15:15)
[2024-08-10 16:34] VITALS: BP 175/89; TEMP 97.4; O2SAT 95
[2024-08-10] MEDS ORDERED: diphenhydrAMINE 50 MG/1 ML VIAL IV PRN (18:00)
[2024-08-10 18:14] LABS: HEMATOCRIT 24.7 % (31.2-41.9)
[2024-08-10 18:31] VITALS: BP 130/65; TEMP 98.8; O2SAT 96
[2024-08-10 20:26] VITALS: BP 135/71; TEMP 97.3; O2SAT 98
[2024-08-11 06:18] VITALS: BP 136/80; TEMP 97.3; O2SAT 99
[2024-08-11 06:41] LABS: BASOPHILS # (AUTO) 0.1 K/UL (0.0-0.2); BASOPHILS % (AUTO) 0.4 % (0.0-2.0); EOSINOPHILS # (AUTO) 0.2 K/uL (0.0-0.7); EOSINOPHILS % (AUTO) 1.7 % (0.0-7.0); HEMATOCRIT 23.1 % (31.2-41.9); LYMPHOCYTES # (AUTO) 1.7 K/uL (0.8-4.8); LYMPHOCYTES % (AUTO) 12.2 % (20.5-51.5); MEAN CORPUSCULAR HGB CONC 32 g/dL (32.3-35.6); MEAN CORPUSCULAR VOLUME 94.5 fL (75.5-95.3); MONOCYTES # (AUTO) 0.7 K/uL (0.1-1.30); MONOCYTES % (AUTO) 5.2 % (0.0-11.0); NEUTROPHILS # (AUTO) 11.4 K/uL (1.8-8.9); NEUTROPHILS % (AUTO) 80.5 % (38.5-71.5); PLATELET COUNT (AUTO) 370 K/uL (179-408); RED CELL DISTRIBUTION WIDTH 19.3 % (12.3-17.7); WHITE BLOOD COUNT (AUTO) 14.2 K/uL (3.8-11.8)
[2024-08-11 06:52] LABS: DIFFERENTIAL COMMENT 1; HEMOGLOBIN 7.3 g/dL (10.9-14.3); RED BLOOD CELL COUNT(AUTO) 2.44 MIL/uL (3.63-4.92)
[2024-08-11 06:53] LABS: CALCIUM 7.7 mg/dL (8.5-10.1); CREATININE 0.7 mg/dL (0.6-1.3); POTASSIUM 3.8 mmol/L (3.5-5.1)
[2024-08-11 08:02] LABS: BAND % (MANUAL) 3 % (0-10); EOSINOPHILS % (MANUAL) 1 % (0-8); LYMPHOCYTES % (MANUAL) 9 % (20-40); METAMYELOCYTES % 2 % (0-1); MONOCYTES % (MANUAL) 4 % (2-10); MYELOCYTES % 2 % (0-0); NEUTROPHILS % (MANUAL) 79 % (42-75)
[2024-08-11 08:03] LABS: ANISOCYTOSIS 2+; PLATELET ESTIMATE ADEQUATE
[2024-08-11 08:15] VITALS: BP 153/83; TEMP 96.5; O2SAT 98
[2024-08-11] MEDS: METOCLOPRAMIDE HCL 10 MG/10 ML UDC NG SCH (12:22)
[2024-08-11 16:33] LABS: HEMATOCRIT 22.6 % (31.2-41.9); HEMOGLOBIN 7.5 g/dL (10.9-14.3)
[2024-08-11 19:00] VITALS: BP 136/62; TEMP 98; O2SAT 95
[2024-08-12 06:00] VITALS: BP 143/66; TEMP 97.8; O2SAT 95
[2024-08-12 06:53] LABS: BASOPHILS % (AUTO) 0.3 % (0.0-2.0); EOSINOPHILS # (AUTO) 0.3 K/uL (0.0-0.7); EOSINOPHILS % (AUTO) 3.3 % (0.0-7.0); LYMPHOCYTES # (AUTO) 1.2 K/uL (0.8-4.8); LYMPHOCYTES % (AUTO) 12.4 % (20.5-51.5); MEAN CORPUSCULAR HEMOGLOBIN 32.9 uug (24.7-32.8); MEAN CORPUSCULAR HGB CONC 31 g/dL (32.3-35.6); MEAN CORPUSCULAR VOLUME 105.1 fL (75.5-95.3); MONOCYTES # (AUTO) 0.4 K/uL (0.1-1.30); MONOCYTES % (AUTO) 4.4 % (0.0-11.0); NEUTROPHILS # (AUTO) 7.5 K/uL (1.8-8.9); NEUTROPHILS % (AUTO) 79.6 % (38.5-71.5); PLATELET COUNT (AUTO) 185 K/uL (179-408); RED CELL DISTRIBUTION WIDTH 21.1 % (12.3-17.7); WHITE BLOOD COUNT (AUTO) 9.4 K/uL (3.8-11.8)
[2024-08-12 07:08] LABS: RED BLOOD CELL COUNT(AUTO) 1.98 MIL/uL (3.63-4.92)
[2024-08-12 07:09] LABS: DIFFERENTIAL COMMENT 1; HEMATOCRIT 20.8 % (31.2-41.9); HEMOGLOBIN 6.5 g/dL (10.9-14.3)
[2024-08-12 08:05] LABS: BAND % (MANUAL) 1 % (0-10); EOSINOPHILS % (MANUAL) 2 % (0-8); LYMPHOCYTES % (MANUAL) 9 % (20-40); MONOCYTES % (MANUAL) 4 % (2-10); MYELOCYTES % 1 % (0-0); NEUTROPHILS % (MANUAL) 83 % (42-75); PLATELET ESTIMATE ADEQUATE
[2024-08-12 08:34] LABS: CREATININE 0.7 mg/dL (0.6-1.3); POTASSIUM 3.8 mmol/L (3.5-5.1)
[2024-08-12 09:49] LABS: HEMATOCRIT 22.1 % (31.2-41.9)
[2024-08-12 09:50] LABS: HEMOGLOBIN 7.1 g/dL (10.9-14.3)
[2024-08-12 10:59] VITALS: BP 146/82; TEMP 98.1; O2SAT 100
[2024-08-12 15:29] VITALS: BP 151/80; TEMP 98.4; O2SAT 94
[2024-08-12 18:30] LABS: HEMATOCRIT 23.4 % (31.2-41.9); HEMOGLOBIN 7.7 g/dL (10.9-14.3)
[2024-08-12 20:09] VITALS: BP 147/78; TEMP 98.4; O2SAT 97
[2024-08-13 06:13] VITALS: BP 185/93; TEMP 97.7; O2SAT 96
[2024-08-13 09:23] LABS: BASOPHILS # (AUTO) 0.1 K/UL (0.0-0.2); BASOPHILS % (AUTO) 0.6 % (0.0-2.0); EOSINOPHILS # (AUTO) 0.3 K/uL (0.0-0.7); EOSINOPHILS % (AUTO) 2.2 % (0.0-7.0); HEMATOCRIT 22.2 % (31.2-41.9); LYMPHOCYTES # (AUTO) 1.3 K/uL (0.8-4.8); LYMPHOCYTES % (AUTO) 11.2 % (20.5-51.5); MEAN CORPUSCULAR HEMOGLOBIN 31.5 uug (24.7-32.8); MEAN CORPUSCULAR HGB CONC 33 g/dL (32.3-35.6); MONOCYTES # (AUTO) 0.6 K/uL (0.1-1.30); NEUTROPHILS # (AUTO) 9.3 K/uL (1.8-8.9); PLATELET COUNT (AUTO) 376 K/uL (179-408); WHITE BLOOD COUNT (AUTO) 11.4 K/uL (3.8-11.8)
[2024-08-13 09:31] LABS: CREATININE 0.6 mg/dL (0.6-1.3); DIFFERENTIAL COMMENT 1; HEMOGLOBIN 7.4 g/dL (10.9-14.3); RED BLOOD CELL COUNT(AUTO) 2.34 MIL/uL (3.63-4.92)
[2024-08-13 10:19] LABS: NEUTROPHILS % (MANUAL) 75 % (42-75)
[2024-08-13 10:20] LABS: BAND % (MANUAL) 1 % (0-10); EOSINOPHILS % (MANUAL) 2 % (0-8); LYMPHOCYTES % (MANUAL) 17 % (20-40); METAMYELOCYTES % 1 % (0-1); MONOCYTES % (MANUAL) 4 % (2-10); PLATELET ESTIMATE ADEQUATE
[2024-08-13 11:44] VITALS: BP 139/77; TEMP 97.6; O2SAT 98
[2024-08-13 16:13] VITALS: BP 163/87; TEMP 97.6; O2SAT 98
[2024-08-13 18:14] LABS: HEMATOCRIT 23.3 % (31.2-41.9); HEMOGLOBIN 7.6 g/dL (10.9-14.3)
[2024-08-13 19:00] VITALS: BP 159/91; TEMP 97.9; O2SAT 95
[2024-08-14 06:15] LABS: BASOPHILS # (AUTO) 0.1 K/UL (0.0-0.2); BASOPHILS % (AUTO) 0.9 % (0.0-2.0); EOSINOPHILS # (AUTO) 0.7 K/uL (0.0-0.7); EOSINOPHILS % (AUTO) 6.9 % (0.0-7.0); HEMATOCRIT 21.8 % (31.2-41.9); LYMPHOCYTES # (AUTO) 1.2 K/uL (0.8-4.8); LYMPHOCYTES % (AUTO) 11.7 % (20.5-51.5); MEAN CORPUSCULAR HEMOGLOBIN 31.4 uug (24.7-32.8); MEAN CORPUSCULAR HGB CONC 33 g/dL (32.3-35.6); MEAN CORPUSCULAR VOLUME 94.9 fL (75.5-95.3); MONOCYTES # (AUTO) 0.6 K/uL (0.1-1.30); MONOCYTES % (AUTO) 5.9 % (0.0-11.0); NEUTROPHILS # (AUTO) 7.3 K/uL (1.8-8.9); NEUTROPHILS % (AUTO) 74.6 % (38.5-71.5); PLATELET COUNT (AUTO) 381 K/uL (179-408); RED CELL DISTRIBUTION WIDTH 21.6 % (12.3-17.7); WHITE BLOOD COUNT (AUTO) 9.8 K/uL (3.8-11.8)
[2024-08-14 06:21] LABS: HEMOGLOBIN 7.2 g/dL (10.9-14.3)
[2024-08-14 06:23] LABS: CALCIUM 7.6 mg/dL (8.5-10.1); CREATININE 0.7 mg/dL (0.6-1.3); POTASSIUM 3.8 mmol/L (3.5-5.1)
[2024-08-14 06:45] VITALS: BP 149/83; TEMP 97.7; O2SAT 98
[2024-08-14 07:03] VITALS: BP 149/83; TEMP 98.6; O2SAT 96
[2024-08-14 14:30] LABS: HEMATOCRIT 23.1 % (31.2-41.9); HEMOGLOBIN 7.6 g/dL (10.9-14.3)
[2024-08-14 16:13] VITALS: BP 149/86; TEMP 97.8; O2SAT 97
[2024-08-14 18:12] LABS: *OCCULT BLOOD STOOL NEGATIVE (NEGATIVE)
[2024-08-14 19:53] LABS: HEMATOCRIT 23.4 % (31.2-41.9); HEMOGLOBIN 7.8 g/dL (10.9-14.3)
[2024-08-14 20:30] VITALS: BP 137/84; TEMP 97.8; O2SAT 100
[2024-08-14] MEDS: LOPERAMIDE HCL 1 MG/7.5 ML LIQUID GT PRN (21:36)
[2024-08-15 05:56] VITALS: BP 136/75; TEMP 98.2; O2SAT 99
[2024-08-15 09:06] LABS: BETA-2 MICROGLOBULIN, SERUM 7.3 mg/L (0.6-2.4)
[2024-08-15 09:48] VITALS: BP 102/67; TEMP 98.4
[2024-08-15 15:05] LABS: BASOPHILS # (AUTO) 0.1 K/UL (0.0-0.2); BASOPHILS % (AUTO) 0.5 % (0.0-2.0); EOSINOPHILS # (AUTO) 0.6 K/uL (0.0-0.7); EOSINOPHILS % (AUTO) 5.5 % (0.0-7.0); HEMATOCRIT 22.8 % (31.2-41.9); HEMOGLOBIN 7.5 g/dL (10.9-14.3); LYMPHOCYTES # (AUTO) 1.6 K/uL (0.8-4.8); LYMPHOCYTES % (AUTO) 15.7 % (20.5-51.5); MEAN CORPUSCULAR HEMOGLOBIN 31.6 uug (24.7-32.8); MEAN CORPUSCULAR HGB CONC 33 g/dL (32.3-35.6); MEAN CORPUSCULAR VOLUME 95.4 fL (75.5-95.3); MONOCYTES # (AUTO) 0.6 K/uL (0.1-1.30); MONOCYTES % (AUTO) 6.3 % (0.0-11.0); NEUTROPHILS # (AUTO) 7.4 K/uL (1.8-8.9); PLATELET COUNT (AUTO) 421 K/uL (179-408); RED CELL DISTRIBUTION WIDTH 21.1 % (12.3-17.7); WHITE BLOOD COUNT (AUTO) 10.3 K/uL (3.8-11.8)
[2024-08-15 15:17] LABS: DIFFERENTIAL COMMENT 1; RED BLOOD CELL COUNT(AUTO) 2.39 MIL/uL (3.63-4.92)
[2024-08-15 15:20] LABS: CREATININE 0.6 mg/dL (0.6-1.3); POTASSIUM 4.5 mmol/L (3.5-5.1)
[2024-08-15 19:30] VITALS: BP 157/83; TEMP 97.5; O2SAT 95
[2024-08-16 06:27] LABS: BASOPHILS # (AUTO) 0.1 K/UL (0.0-0.2); BASOPHILS % (AUTO) 0.7 % (0.0-2.0); EOSINOPHILS # (AUTO) 0.7 K/uL (0.0-0.7); EOSINOPHILS % (AUTO) 6.5 % (0.0-7.0); HEMATOCRIT 21.7 % (31.2-41.9); LYMPHOCYTES # (AUTO) 1.5 K/uL (0.8-4.8); LYMPHOCYTES % (AUTO) 14.1 % (20.5-51.5); MEAN CORPUSCULAR HEMOGLOBIN 31.9 uug (24.7-32.8); MEAN CORPUSCULAR HGB CONC 33 g/dL (32.3-35.6); MEAN CORPUSCULAR VOLUME 96.2 fL (75.5-95.3); MONOCYTES # (AUTO) 0.7 K/uL (0.1-1.30); MONOCYTES % (AUTO) 6.7 % (0.0-11.0); NEUTROPHILS # (AUTO) 7.6 K/uL (1.8-8.9); PLATELET COUNT (AUTO) 422 K/uL (179-408); RED CELL DISTRIBUTION WIDTH 21.3 % (12.3-17.7); WHITE BLOOD COUNT (AUTO) 10.5 K/uL (3.8-11.8)
[2024-08-16 06:34] LABS: HEMOGLOBIN 7.2 g/dL (10.9-14.3); RED BLOOD CELL COUNT(AUTO) 2.25 MIL/uL (3.63-4.92)
[2024-08-16 07:01] LABS: CALCIUM 7.7 mg/dL (8.5-10.1); CREATININE 0.7 mg/dL (0.6-1.3); POTASSIUM 4.2 mmol/L (3.5-5.1)
[2024-08-16 07:07] VITALS: BP 149/72; TEMP 98.2; O2SAT 98
[2024-08-16 11:14] VITALS: BP 144/78; TEMP 98.4; O2SAT 91
[2024-08-16 15:14] VITALS: BP 142/79; TEMP 97.1; O2SAT 96
[2024-08-16 16:06] LABS: *PEU ALBUMIN, UR 17.1 % (.); *PEU ALPHA-2-GLOBULIN, UR 26.9 % (.); *PEU PROTEIN, TOTAL, UR 10.5 mg/dL (Not Estab.); *PEUALPHA-1-GLOBULIN, UR 3.8 % (.); *PEUBETA GLOBULIN, UR 35.2 % (.)
[2024-08-16 20:00] VITALS: BP 124/72; TEMP 99.3; O2SAT 100
[2024-08-17 06:11] VITALS: BP 149/69; TEMP 97.8; O2SAT 97
[2024-08-17 06:25] LABS: BASOPHILS # (AUTO) 0.2 K/UL (0.0-0.2); BASOPHILS % (AUTO) 1.5 % (0.0-2.0); EOSINOPHILS # (AUTO) 0.9 K/uL (0.0-0.7); EOSINOPHILS % (AUTO) 7.2 % (0.0-7.0); HEMATOCRIT 23.7 % (31.2-41.9); HEMOGLOBIN 7.7 g/dL (10.9-14.3); LYMPHOCYTES # (AUTO) 2.6 K/uL (0.8-4.8); LYMPHOCYTES % (AUTO) 20.4 % (20.5-51.5); MEAN CORPUSCULAR HEMOGLOBIN 31.6 uug (24.7-32.8); MEAN CORPUSCULAR HGB CONC 33 g/dL (32.3-35.6); MEAN CORPUSCULAR VOLUME 96.5 fL (75.5-95.3); MONOCYTES % (AUTO) 7.9 % (0.0-11.0); NEUTROPHILS # (AUTO) 8.1 K/uL (1.8-8.9); PLATELET COUNT (AUTO) 396 K/uL (179-408); RED CELL DISTRIBUTION WIDTH 21.9 % (12.3-17.7); WHITE BLOOD COUNT (AUTO) 12.9 K/uL (3.8-11.8)
[2024-08-17 06:41] LABS: DIFFERENTIAL COMMENT 1; RED BLOOD CELL COUNT(AUTO) 2.45 MIL/uL (3.63-4.92)
[2024-08-17 06:59] LABS: CALCIUM 8.3 mg/dL (8.5-10.1); CREATININE 0.6 mg/dL (0.6-1.3); POTASSIUM 4.5 mmol/L (3.5-5.1)
[2024-08-17 10:06] LABS: A/G RATIO 0.7 (0.7-1.7); ALBUMIN 1.7 g/dL (2.9-4.4); ALPHA-1-GLOBULIN 0.2 g/dL (0.0-0.4); ALPHA-2-GLOBULIN 0.6 g/dL (0.4-1.0); BETA GLOBULIN 0.6 g/dL (0.7-1.3); GLOBULIN, TOTAL 2.4 g/dL (2.2-3.9); M-SPIKE 0.1 g/dL (Not Observed); PROTEIN, TOTAL 4.1 g/dL (6.0-8.5)
[2024-08-17 11:30] VITALS: BP 142/76; TEMP 97.4; O2SAT 99
[2024-08-17] MEDS ORDERED: LIDOCAINE HCL 1% 20 ML VIAL IJ PRN (14:45)
[2024-08-17 15:30] VITALS: BP 172/91; TEMP 97.2; O2SAT 98
[2024-08-17] MEDS: LORAZEPAM 1 MG TABLET PO ONE (17:44)
[2024-08-17] MEDS: MORPHINE SULFATE 2 MG/1 ML DISP.SYRIN IV ONE (17:45)
[2024-08-17 21:22] VITALS: BP 143/76; TEMP 98.8; O2SAT 96
[2024-08-18 06:33] VITALS: BP 148/78; TEMP 98.7; O2SAT 96
[2024-08-18 06:46] LABS: BASOPHILS # (AUTO) 0.2 K/UL (0.0-0.2); BASOPHILS % (AUTO) 1.5 % (0.0-2.0); EOSINOPHILS # (AUTO) 0.7 K/uL (0.0-0.7); EOSINOPHILS % (AUTO) 6.3 % (0.0-7.0); HEMATOCRIT 22.4 % (31.2-41.9); LYMPHOCYTES % (AUTO) 17.2 % (20.5-51.5); MEAN CORPUSCULAR HEMOGLOBIN 32.2 uug (24.7-32.8); MEAN CORPUSCULAR HGB CONC 33 g/dL (32.3-35.6); MEAN CORPUSCULAR VOLUME 97.6 fL (75.5-95.3); MONOCYTES # (AUTO) 1.1 K/uL (0.1-1.30); MONOCYTES % (AUTO) 9.4 % (0.0-11.0); NEUTROPHILS # (AUTO) 7.7 K/uL (1.8-8.9); NEUTROPHILS % (AUTO) 65.6 % (38.5-71.5); PLATELET COUNT (AUTO) 427 K/uL (179-408); RED CELL DISTRIBUTION WIDTH 21.5 % (12.3-17.7); WHITE BLOOD COUNT (AUTO) 11.8 K/uL (3.8-11.8)
[2024-08-18 07:02] LABS: CALCIUM 8.4 mg/dL (8.5-10.1); CREATININE 0.7 mg/dL (0.6-1.3); POTASSIUM 4.1 mmol/L (3.5-5.1)
[2024-08-18 07:19] LABS: DIFFERENTIAL COMMENT 1; HEMOGLOBIN 7.4 g/dL (10.9-14.3); RED BLOOD CELL COUNT(AUTO) 2.29 MIL/uL (3.63-4.92)
[2024-08-18 08:55] LABS: EOSINOPHILS % (MANUAL) 2 % (0-8); LYMPHOCYTES % (MANUAL) 16 % (20-40); MONOCYTES % (MANUAL) 5 % (2-10); MYELOCYTES % 2 % (0-0); NEUTROPHILS % (MANUAL) 75 % (42-75); PLATELET ESTIMATE INCREASED
[2024-08-18 08:56] LABS: ANISOCYTOSIS 3+
[2024-08-18] MEDS: METOCLOPRAMIDE HCL 10 MG/2 ML VIAL IV SCH (09:58)
[2024-08-18 11:31] VITALS: BP 126/72; TEMP 97.7; O2SAT 98
[2024-08-18 15:41] VITALS: BP 117/78; TEMP 97.9; O2SAT 98
[2024-08-18 19:00] VITALS: BP 154/70; TEMP 98.7; O2SAT 100
[2024-08-19 06:00] VITALS: BP 141/73; TEMP 98.7; O2SAT 100
[2024-08-19 06:54] LABS: BASOPHILS # (AUTO) 0.2 K/UL (0.0-0.2); BASOPHILS % (AUTO) 1.3 % (0.0-2.0); EOSINOPHILS # (AUTO) 0.4 K/uL (0.0-0.7); EOSINOPHILS % (AUTO) 3.4 % (0.0-7.0); LYMPHOCYTES # (AUTO) 2.1 K/uL (0.8-4.8); LYMPHOCYTES % (AUTO) 16.2 % (20.5-51.5); MEAN CORPUSCULAR HEMOGLOBIN 32.2 uug (24.7-32.8); MEAN CORPUSCULAR HGB CONC 34 g/dL (32.3-35.6); MONOCYTES # (AUTO) 1.2 K/uL (0.1-1.30); MONOCYTES % (AUTO) 8.9 % (0.0-11.0); NEUTROPHILS # (AUTO) 9.1 K/uL (1.8-8.9); NEUTROPHILS % (AUTO) 70.2 % (38.5-71.5); PLATELET COUNT (AUTO) 411 K/uL (179-408); RED CELL DISTRIBUTION WIDTH 20.3 % (12.3-17.7)
[2024-08-19 07:18] LABS: DIFFERENTIAL COMMENT 1; HEMOGLOBIN 7.4 g/dL (10.9-14.3); RED BLOOD CELL COUNT(AUTO) 2.31 MIL/uL (3.63-4.92)
[2024-08-19 07:27] LABS: CALCIUM 7.9 mg/dL (8.5-10.1); CREATININE 0.7 mg/dL (0.6-1.3); POTASSIUM 3.9 mmol/L (3.5-5.1)
[2024-08-19 09:43] LABS: ANISOCYTOSIS 2+; BAND % (MANUAL) 1 % (0-10); EOSINOPHILS % (MANUAL) 3 % (0-8); LYMPHOCYTES % (MANUAL) 16 % (20-40); MONOCYTES % (MANUAL) 8 % (2-10); NEUTROPHILS % (MANUAL) 72 % (42-75); PLATELET ESTIMATE INCREASED
[2024-08-19 11:17] VITALS: BP 147/77; TEMP 98.2; O2SAT 96
[2024-08-19] MEDS ORDERED: IV D5W 1000ML 1,000 ML IV ONE (14:15)
[2024-08-19 15:02] VITALS: BP 156/76; TEMP 98.6; O2SAT 100
[2024-08-19 19:00] VITALS: BP 158/74; TEMP 98.5; O2SAT 100
[2024-08-19] MEDS: OCTREOTIDE ACETATE 50 MCG/1 ML ML SQ SCH (22:11)
[2024-08-20 06:00] VITALS: BP 151/94; TEMP 98.1; O2SAT 100
[2024-08-20 08:31] LABS: CALCIUM 8.1 mg/dL (8.5-10.1); CREATININE 0.7 mg/dL (0.6-1.3); POTASSIUM 5.7 mmol/L (3.5-5.1)
[2024-08-20 09:35] LABS: BASOPHILS # (AUTO) 0.2 K/UL (0.0-0.2); EOSINOPHILS # (AUTO) 0.7 K/uL (0.0-0.7); EOSINOPHILS % (AUTO) 4.5 % (0.0-7.0); HEMATOCRIT 27.5 % (31.2-41.9); HEMOGLOBIN 8.6 g/dL (10.9-14.3); LYMPHOCYTES % (AUTO) 12.9 % (20.5-51.5); MEAN CORPUSCULAR HEMOGLOBIN 30.6 uug (24.7-32.8); MEAN CORPUSCULAR HGB CONC 31 g/dL (32.3-35.6); MEAN CORPUSCULAR VOLUME 97.4 fL (75.5-95.3); MONOCYTES # (AUTO) 1.4 K/uL (0.1-1.30); MONOCYTES % (AUTO) 8.8 % (0.0-11.0); NEUTROPHILS # (AUTO) 11.2 K/uL (1.8-8.9); NEUTROPHILS % (AUTO) 72.8 % (38.5-71.5); PLATELET COUNT (AUTO) 315 K/uL (179-408); RED BLOOD CELL COUNT(AUTO) 2.83 MIL/uL (3.63-4.92); RED CELL DISTRIBUTION WIDTH 20.4 % (12.3-17.7); WHITE BLOOD COUNT (AUTO) 15.4 K/uL (3.8-11.8)
[2024-08-20 09:55] LABS: DIFFERENTIAL COMMENT 1
[2024-08-20] MEDS: DEXTROSE 50% 50 ML DISP.SYRIN IV ONE (10:05)
[2024-08-20] MEDS: INSULIN REGULAR, HUMAN 1000 UNIT/10 ML VIAL IV ONE (10:13)
[2024-08-20] MEDS: OSMOLITE 1.2 CAL 1,000 ML LIQUID GT SCH (11:05)
[2024-08-20 11:35] VITALS: TEMP 98.2; O2SAT 97
[2024-08-20 11:44] VITALS: TEMP 98.2; O2SAT 97
[2024-08-20 13:31] LABS: CALCIUM 8.3 mg/dL (8.5-10.1); CREATININE 0.7 mg/dL (0.6-1.3); POTASSIUM 4.6 mmol/L (3.5-5.1)
[2024-08-20 15:36] VITALS: BP 153/90; TEMP 97.8; O2SAT 97
[2024-08-20 19:00] VITALS: BP 160/82; TEMP 97.8; O2SAT 96
[2024-08-21 06:00] VITALS: BP 164/84; TEMP 97.7; O2SAT 94
[2024-08-21 09:19] LABS: BASOPHILS # (AUTO) 0.2 K/UL (0.0-0.2); BASOPHILS % (AUTO) 1.2 % (0.0-2.0); EOSINOPHILS # (AUTO) 0.9 K/uL (0.0-0.7); EOSINOPHILS % (AUTO) 6.3 % (0.0-7.0); HEMATOCRIT 26.1 % (31.2-41.9); HEMOGLOBIN 8.6 g/dL (10.9-14.3); LYMPHOCYTES # (AUTO) 1.9 K/uL (0.8-4.8); LYMPHOCYTES % (AUTO) 13.9 % (20.5-51.5); MEAN CORPUSCULAR HEMOGLOBIN 31.6 uug (24.7-32.8); MEAN CORPUSCULAR HGB CONC 33 g/dL (32.3-35.6); MEAN CORPUSCULAR VOLUME 95.8 fL (75.5-95.3); MONOCYTES # (AUTO) 1.3 K/uL (0.1-1.30); MONOCYTES % (AUTO) 9.2 % (0.0-11.0); NEUTROPHILS # (AUTO) 9.8 K/uL (1.8-8.9); NEUTROPHILS % (AUTO) 69.4 % (38.5-71.5); PLATELET COUNT (AUTO) 501 K/uL (179-408); RED BLOOD CELL COUNT(AUTO) 2.72 MIL/uL (3.63-4.92); RED CELL DISTRIBUTION WIDTH 19.4 % (12.3-17.7)
[2024-08-21 09:22] LABS: DIFFERENTIAL COMMENT 1
[2024-08-21 09:36] LABS: CALCIUM 8.7 mg/dL (8.5-10.1); CREATININE 0.7 mg/dL (0.6-1.3); POTASSIUM 4.6 mmol/L (3.5-5.1)
[2024-08-21 11:14] VITALS: BP 127/66; TEMP 97.3; O2SAT 94
[2024-08-21 15:45] VITALS: BP 160/73; TEMP 97.7; O2SAT 94
[2024-08-21 19:00] VITALS: BP 155/89; TEMP 98.9; O2SAT 96
[2024-08-22 06:00] VITALS: BP 135/69; TEMP 98.6; O2SAT 95
[2024-08-22 07:34] LABS: BASOPHILS # (AUTO) 0.1 K/UL (0.0-0.2); BASOPHILS % (AUTO) 1.3 % (0.0-2.0); EOSINOPHILS # (AUTO) 0.5 K/uL (0.0-0.7); EOSINOPHILS % (AUTO) 4.4 % (0.0-7.0); HEMATOCRIT 21.8 % (31.2-41.9); LYMPHOCYTES # (AUTO) 1.7 K/uL (0.8-4.8); LYMPHOCYTES % (AUTO) 16.1 % (20.5-51.5); MEAN CORPUSCULAR HGB CONC 33 g/dL (32.3-35.6); MEAN CORPUSCULAR VOLUME 95.8 fL (75.5-95.3); MONOCYTES % (AUTO) 9.4 % (0.0-11.0); NEUTROPHILS # (AUTO) 7.2 K/uL (1.8-8.9); NEUTROPHILS % (AUTO) 68.8 % (38.5-71.5); PLATELET COUNT (AUTO) 422 K/uL (179-408); RED CELL DISTRIBUTION WIDTH 19.7 % (12.3-17.7); WHITE BLOOD COUNT (AUTO) 10.5 K/uL (3.8-11.8)
[2024-08-22 07:51] LABS: DIFFERENTIAL COMMENT 1; HEMOGLOBIN 7.3 g/dL (10.9-14.3); RED BLOOD CELL COUNT(AUTO) 2.28 MIL/uL (3.63-4.92)
[2024-08-22 08:02] LABS: CALCIUM 7.7 mg/dL (8.5-10.1); CREATININE 0.7 mg/dL (0.6-1.3); MAGNESIUM 2.1 mg/dL (1.8-2.4); PHOSPHOROUS 4.2 mg/dL (2.5-4.9); POTASSIUM 4.6 mmol/L (3.5-5.1)
[2024-08-22 10:23] LABS: BILIRUBIN,DIRECT 0.1 mg/dL (0.0-0.2); BILIRUBIN,TOTAL 0.2 mg/dL (0.2-1.0); TOTAL PROTEIN, SERUM 4.8 g/dL (6.4-8.2)
[2024-08-22 10:54] VITALS: BP 129/76; TEMP 98.6; O2SAT 95
[2024-08-22 15:30] VITALS: BP 125/72; TEMP 98.4
[2024-08-22 19:30] VITALS: BP 131/84; TEMP 98.5; O2SAT 96
[2024-08-23 06:00] VITALS: BP 114/83; TEMP 98.3; O2SAT 100
[2024-08-23 06:55] LABS: BASOPHILS # (AUTO) 0.1 K/UL (0.0-0.2); EOSINOPHILS # (AUTO) 0.7 K/uL (0.0-0.7); EOSINOPHILS % (AUTO) 6.6 % (0.0-7.0); HEMATOCRIT 22.6 % (31.2-41.9); HEMOGLOBIN 7.5 g/dL (10.9-14.3); LYMPHOCYTES % (AUTO) 19.1 % (20.5-51.5); MEAN CORPUSCULAR HEMOGLOBIN 32.1 uug (24.7-32.8); MEAN CORPUSCULAR HGB CONC 33 g/dL (32.3-35.6); MEAN CORPUSCULAR VOLUME 96.2 fL (75.5-95.3); MONOCYTES % (AUTO) 9.2 % (0.0-11.0); NEUTROPHILS # (AUTO) 6.6 K/uL (1.8-8.9); NEUTROPHILS % (AUTO) 64.1 % (38.5-71.5); PLATELET COUNT (AUTO) 442 K/uL (179-408); WHITE BLOOD COUNT (AUTO) 10.3 K/uL (3.8-11.8)
[2024-08-23 07:22] LABS: DIFFERENTIAL COMMENT 1; RED BLOOD CELL COUNT(AUTO) 2.34 MIL/uL (3.63-4.92)
[2024-08-23 07:37] LABS: CALCIUM 7.7 mg/dL (8.5-10.1); CREATININE 0.7 mg/dL (0.6-1.3); MAGNESIUM 2.3 mg/dL (1.8-2.4); PHOSPHOROUS 3.5 mg/dL (2.5-4.9); POTASSIUM 4.8 mmol/L (3.5-5.1)
[2024-08-23 11:33] VITALS: BP 153/76; TEMP 98.2; O2SAT 96
[2024-08-23] MEDS: OCTREOTIDE ACETATE 100 MCG/1 MLVIAL SQ SCH (13:06)
[2024-08-23 15:11] VITALS: BP 160/77; TEMP 98.4; O2SAT 95
[2024-08-23 19:00] VITALS: BP 160/77; TEMP 98.7; O2SAT 96
[2024-08-24 06:00] VITALS: BP 153/70; TEMP 98.8; O2SAT 95
[2024-08-24 08:54] LABS: BASOPHILS # (AUTO) 0.1 K/UL (0.0-0.2); BASOPHILS % (AUTO) 0.9 % (0.0-2.0); EOSINOPHILS # (AUTO) 0.6 K/uL (0.0-0.7); EOSINOPHILS % (AUTO) 5.4 % (0.0-7.0); HEMATOCRIT 23.7 % (31.2-41.9); HEMOGLOBIN 7.5 g/dL (10.9-14.3); LYMPHOCYTES # (AUTO) 1.9 K/uL (0.8-4.8); LYMPHOCYTES % (AUTO) 16.8 % (20.5-51.5); MEAN CORPUSCULAR HEMOGLOBIN 30.5 uug (24.7-32.8); MEAN CORPUSCULAR HGB CONC 32 g/dL (32.3-35.6); MEAN CORPUSCULAR VOLUME 96.5 fL (75.5-95.3); MONOCYTES # (AUTO) 1.1 K/uL (0.1-1.30); MONOCYTES % (AUTO) 9.5 % (0.0-11.0); NEUTROPHILS # (AUTO) 7.4 K/uL (1.8-8.9); NEUTROPHILS % (AUTO) 67.4 % (38.5-71.5); PLATELET COUNT (AUTO) 420 K/uL (179-408); RED CELL DISTRIBUTION WIDTH 18.8 % (12.3-17.7); WHITE BLOOD COUNT (AUTO) 11.1 K/uL (3.8-11.8)
[2024-08-24 09:00] LABS: DIFFERENTIAL COMMENT 1; RED BLOOD CELL COUNT(AUTO) 2.46 MIL/uL (3.63-4.92)
[2024-08-24 09:20] LABS: CALCIUM 8.1 mg/dL (8.5-10.1); CREATININE 0.7 mg/dL (0.6-1.3); MAGNESIUM 2.4 mg/dL (1.8-2.4); PHOSPHOROUS 3.8 mg/dL (2.5-4.9); POTASSIUM 4.8 mmol/L (3.5-5.1)
[2024-08-24 10:57] VITALS: BP 156/79; TEMP 98.5; O2SAT 100
[2024-08-24 15:04] VITALS: BP 160/75; TEMP 98.2; O2SAT 97
[2024-08-24 19:35] VITALS: BP 176/85; TEMP 98.9; O2SAT 100
[2024-08-25 06:12] VITALS: BP 127/68; TEMP 98.1; O2SAT 98
[2024-08-25 09:09] LABS: CALCIUM 8.1 mg/dL (8.5-10.1); CREATININE 0.7 mg/dL (0.6-1.3); MAGNESIUM 2.3 mg/dL (1.8-2.4); PHOSPHOROUS 4.2 mg/dL (2.5-4.9); POTASSIUM 5.3 mmol/L (3.5-5.1)
[2024-08-25] MEDS: SODIUM ZIRCONIUM CYCLOSILICATE 5 GM POWD.PACK GT ONE (10:22)
[2024-08-25 11:17] VITALS: BP 159/80; TEMP 97.5; O2SAT 97; O2SAT 98
[2024-08-25 13:42] LABS: BASOPHILS # (AUTO) 0.1 K/UL (0.0-0.2); DIFFERENTIAL COMMENT 0; EOSINOPHILS # (AUTO) 0.5 K/uL (0.0-0.7); EOSINOPHILS % (AUTO) 4.6 % (0.0-7.0); HEMOGLOBIN 7.7 g/dL (10.9-14.3); LYMPHOCYTES # (AUTO) 2.2 K/uL (0.8-4.8); LYMPHOCYTES % (AUTO) 20.2 % (20.5-51.5); MEAN CORPUSCULAR HEMOGLOBIN 31.7 uug (24.7-32.8); MEAN CORPUSCULAR HGB CONC 32 g/dL (32.3-35.6); MEAN CORPUSCULAR VOLUME 98.5 fL (75.5-95.3); MONOCYTES # (AUTO) 0.8 K/uL (0.1-1.30); MONOCYTES % (AUTO) 7.5 % (0.0-11.0); NEUTROPHILS # (AUTO) 7.1 K/uL (1.8-8.9); NEUTROPHILS % (AUTO) 66.7 % (38.5-71.5); PLATELET COUNT (AUTO) 435 K/uL (179-408); WHITE BLOOD COUNT (AUTO) 10.7 K/uL (3.8-11.8)
[2024-08-25 13:45] LABS: RED BLOOD CELL COUNT(AUTO) 2.44 MIL/uL (3.63-4.92)
[2024-08-25 13:50] LABS: CALCIUM 7.7 mg/dL (8.5-10.1); CREATININE 0.7 mg/dL (0.6-1.3); POTASSIUM 4.4 mmol/L (3.5-5.1)
[2024-08-25 15:34] VITALS: BP 160/80; TEMP 98.2; O2SAT 94; O2SAT 98
[2024-08-25 19:35] VITALS: BP 170/84; TEMP 98.3; O2SAT 97
[2024-08-26 06:12] VITALS: BP 155/77; TEMP 98.3; O2SAT 98
[2024-08-26 07:07] LABS: BASOPHILS # (AUTO) 0.1 K/UL (0.0-0.2); BASOPHILS % (AUTO) 0.6 % (0.0-2.0); EOSINOPHILS # (AUTO) 0.5 K/uL (0.0-0.7); EOSINOPHILS % (AUTO) 4.4 % (0.0-7.0); HEMATOCRIT 24.9 % (31.2-41.9); HEMOGLOBIN 7.9 g/dL (10.9-14.3); LYMPHOCYTES # (AUTO) 1.7 K/uL (0.8-4.8); LYMPHOCYTES % (AUTO) 14.8 % (20.5-51.5); MEAN CORPUSCULAR HEMOGLOBIN 32.1 uug (24.7-32.8); MEAN CORPUSCULAR HGB CONC 32 g/dL (32.3-35.6); MONOCYTES # (AUTO) 0.8 K/uL (0.1-1.30); MONOCYTES % (AUTO) 7.3 % (0.0-11.0); NEUTROPHILS # (AUTO) 8.4 K/uL (1.8-8.9); NEUTROPHILS % (AUTO) 72.9 % (38.5-71.5); PLATELET COUNT (AUTO) 472 K/uL (179-408); RED CELL DISTRIBUTION WIDTH 18.5 % (12.3-17.7); WHITE BLOOD COUNT (AUTO) 11.6 K/uL (3.8-11.8)
[2024-08-26 07:23] LABS: DIFFERENTIAL COMMENT 1; RED BLOOD CELL COUNT(AUTO) 2.45 MIL/uL (3.63-4.92)
[2024-08-26 11:17] VITALS: BP 160/85; TEMP 98; O2SAT 98; O2SAT 99
[2024-08-26 15:19] VITALS: BP 160/71; TEMP 98.1; O2SAT 96; O2SAT 98
[2024-08-26 19:35] VITALS: BP 159/77; TEMP 98.1; O2SAT 100
[2024-08-27 06:16] VITALS: BP 143/68; TEMP 99.1; O2SAT 98
[2024-08-27 11:24] VITALS: BP 129/68; TEMP 97.4; O2SAT 98
[2024-08-27 16:00] VITALS: BP 155/75; TEMP 97.8; O2SAT 100
[2024-08-27 17:47] VITALS: BP 176/83
== END 2024-08-27 20:20 | DRG 710 ==
LOC: ER 17:47 → TELE3 23:21 → MEDSURG3 06-29 09:25 → CCU 07-27 20:29 → TELE3 08-04 13:59 → MEDSURG3 08-06 08:15
PROVIDERS: ADMIT Student in an Organized Health Care Education/Training Program; ATTEND Student in an Organized Health Care Education/Training Program
PROC: 05HB33Z Insertion of Infusion Device into Right Basilic Vein, Percutaneous Approach (ICD-10-PCS; principal; 2024-06-24)
PROC: XW033E5 Introduction of Remdesivir Anti-infective into Peripheral Vein, Percutaneous Approach, New Technology Group 5 (ICD-10-PCS; 2024-06-25)
PROC: 05HC33Z Insertion of Infusion Device into Left Basilic Vein, Percutaneous Approach (ICD-10-PCS; 2024-06-26)
PROC: 30233N1 Transfusion of Nonautologous Red Blood Cells into Peripheral Vein, Percutaneous Approach (ICD-10-PCS; 2024-07-10)
PROC: 05HF33Z Insertion of Infusion Device into Left Cephalic Vein, Percutaneous Approach (ICD-10-PCS; 2024-07-20)
PROC: 0FB04ZX Excision of Liver, Percutaneous Endoscopic Approach, Diagnostic (ICD-10-PCS; 2024-07-27)
PROC: 5A1945Z Respiratory Ventilation, 24-96 Consecutive Hours (ICD-10-PCS; 2024-07-27)
PROC: 0FT44ZZ Resection of Gallbladder, Percutaneous Endoscopic Approach (ICD-10-PCS; 2024-07-27)
PROC: 02HV33Z Insertion of Infusion Device into Superior Vena Cava, Percutaneous Approach (ICD-10-PCS; 2024-07-28)
DX: A41.89 Other specified sepsis (principal); I63.521 Cerebral infarction due to unspecified occlusion or stenosis of right anterior cerebral artery; N17.0 Acute kidney failure with tubular necrosis; J12.82 Pneumonia due to coronavirus disease 2019; J96.01 Acute respiratory failure with hypoxia; E43 Unspecified severe protein-calorie malnutrition; K85.10 Biliary acute pancreatitis without necrosis or infection; R65.21 Severe sepsis with septic shock; G82.50 Quadriplegia, unspecified; U07.1 COVID-19; D68.59 Other primary thrombophilia; L89.150 Pressure ulcer of sacral region, unstageable; E86.0 Dehydration; K82.A1 Gangrene of gallbladder in cholecystitis; R29.723 NIHSS score 23; R53.1 Weakness; R47.02 Dysphasia; L89.621 Pressure ulcer of left heel, stage 1; K80.00 Calculus of gallbladder with acute cholecystitis without obstruction; K83.09 Other cholangitis; K80.12 Calculus of gallbladder with acute and chronic cholecystitis without obstruction; R13.10 Dysphagia, unspecified; R47.01 Aphasia; E87.0 Hyperosmolality and hypernatremia; E87.5 Hyperkalemia; E83.42 Hypomagnesemia; E83.39 Other disorders of phosphorus metabolism; E88.09 Other disorders of plasma-protein metabolism, not elsewhere classified; I21.A1 Myocardial infarction type 2; K57.30 Diverticulosis of large intestine without perforation or abscess without bleeding; K44.9 Diaphragmatic hernia without obstruction or gangrene; Z22.322 Carrier or suspected carrier of Methicillin resistant Staphylococcus aureus; M21.372 Foot drop, left foot; M21.371 Foot drop, right foot; M24.572 Contracture, left ankle; M24.571 Contracture, right ankle; E11.65 Type 2 diabetes mellitus with hyperglycemia; K62.89 Other specified diseases of anus and rectum; F01.50 Vascular dementia, unspecified severity, without behavioral disturbance, psychotic disturbance, mood disturbance, and anxiety; E78.5 Hyperlipidemia, unspecified; I82.612 Acute embolism and thrombosis of superficial veins of left upper extremity; R18.8 Other ascites; K75.81 Nonalcoholic steatohepatitis (NASH); I70.0 Atherosclerosis of aorta; D75.839 Thrombocytosis, unspecified; D64.9 Anemia, unspecified; E86.1 Hypovolemia; E87.6 Hypokalemia; Z79.84 Long term (current) use of oral hypoglycemic drugs; Z79.02 Long term (current) use of antithrombotics/antiplatelets; I89.8 Other specified noninfective disorders of lymphatic vessels and lymph nodes; I11.9 Hypertensive heart disease without heart failure; Z79.82 Long term (current) use of aspirin; J81.1 Chronic pulmonary edema; E87.1 Hypo-osmolality and hyponatremia
CPT/HCPCS: 36415; 36569; 36600; 43761; 70030-TC; 70450; 70496; 70551; 71045; 71250; 71260; 74018; 76705; 78445; 82378; 82746; 82784; 82803; 83550; 83605; 83615; 83690; 83735; 83970; 84100; 84132; 84155; 84165; 84166; 84443; 84478; 84484; 85018; 85025; 85610; 85730; 86140; 86334; 86850; 86900; 86901; 86920; 87040; 88108-TC; 88185; 88312-TC; 88313-TC; 93005; 93307; 94002; 94003; 94760; A4606; A4663; A6209; A6213; A9537; G0378; G0480; J0248; J0330; J0360; J0690; J0692; J0696; J1100; J1171; J1200; J1644; J1650; J1815; J1940; J2185; J2270; J2354; J2405; J2470; J2543; J2765; J2919; J3010; J3370; J3411; J3475; J3480; J3490; J3535; J7040; J7042; J7050; J7060; J7120; J7131; J8597; L8699; P9016; P9047; Q9963; Q9967